=== PATIENT | female | born 1980 | race Caucasian/White ===

== ENCOUNTER 2019-08-03 20:49 | Inpatient (IN) | payer OTHER, MEDICAID ==
[~2019-08-03] VITALS: Ht 172.7 cm; Wt 71.7 kg
[2019-08-03 22:40] LABS: Basophils # (auto) 0.1 uL; Basophils % (auto) 0.6 % (0.0-2.0); Eosinophils # (auto) 0.1 uL; Lymphocytes # (auto) 2.2 uL; Mean Corpuscular Hemoglobin 24.7 pg (28.0-32.0); Monocytes # (auto) 0.5 uL
[2019-08-03 22:44] LABS: Eosinophils % (auto) 1.1 % (0.0-7.0); Hematocrit 44.6 % (36.0-46.0); Hemoglobin 13.7 g/dL (12.2-16.2); Lymphocytes % (auto) 21.2 % (10.0-50.0); Mean Corpuscular Hgb Conc. 30.8 g/dL (32.0-36.0); Mean Corpuscular Volume 80.2 fL (80.0-100.0); Monocytes % (auto) 4.8 % (0.0-12.0); Neutrophils # (auto) 7.3 uL; Neutrophils % (auto) 72.3 % (37.0-80.0); Platelet Count (auto) 470 10^3/uL (140-450); Red Blood Cells 5.56 10^6/uL (4.0-5.20); Red Cell Distribution Width 18.7 % (11.8-14.3); White Blood Cell 10.1 10^3/uL (4.4-10.8)
[2019-08-03 22:50] LABS: Albumin 2.5 g/dL (3.4-5.0); Anion Gap 11 (5-15); Aspartate Aminotransferase 9 U/L (15-37); Blood Urea Nitrogen 16 mg/dL (7-18); Calcium 8.6 mg/dL (8.5-10.1); Carbon Dioxide 19 mmol/L (21-32); Chloride 102 mmol/L (98-107); Sodium 132 mmol/L (136-145)
[2019-08-03 22:53] LABS: Alanine Aminotransferase 10 U/L (13-56); Alkaline Phosphatase 147 U/L (45-117); BUN/Creatinine Ratio 15.1; Bilirubin, Total 0.2 mg/dL (0.2-1.0); GFR African American 74 mL/min; GFR Non-African American 61 mL/min; Total Protein 7.2 g/dL (6.4-8.2)
[2019-08-03 23:08] LABS: Glucose 637 mg/dL (74-106)
[2019-08-04] MEDS ORDERED: SODIUM CHLORIDE 0.9% 1,000 ML IV ONE
[2019-08-04] MEDS ORDERED: InsuLIN REG 1unit/0.01ml Soln (100units/ml) IV ONE
[2019-08-04 02:00] LABS: Urine Pregnacy Test Negative (Negative)
[2019-08-04 02:02] LABS: Urine Bacteria FEW /hpf (None Seen); Urine Blood TRACE /uL (Negative); Urine Specific Gravity 1.034 (1.001-1.035); Urine WBC 1 /hpf (0 - 5)
[2019-08-04] MEDS ORDERED: LEVOFLOXACIN 500MG 100 ML IV ONE (02:30)
[2019-08-04 03:02] LABS: Alcohol, Urine < 3.0 mg/dL (0-5); Amphetamine Screen, Urine POSITIVE (NEGATIVE); Barbiturate Scree,Urine NEGATIVE (NEGATIVE); Benzodiazephine Screen, Urine NEGATIVE (NEGATIVE); Cannabinoid Screen, Urine NEGATIVE (NEGATIVE); Cocaine Screen, Urine NEGATIVE (NEGATIVE); Opiate Scree,Urine NEGATIVE (NEGATIVE); Phencyclidine Screen, Urine NEGATIVE (NEGATIVE)
[2019-08-04] MEDS ORDERED: ACETAMINOPHEN 325 MG TAB PO PRN (05:30)
[2019-08-04] MEDS ORDERED: HYDROcodone-ACET 5/325MG TAB PO PRN (05:30)
[2019-08-04] MEDS ORDERED: ONDANSETRON HCL 4 MG/2 ML VIAL IV PRN (05:30)
[2019-08-04] MEDS ORDERED: TEMAZEPAM 15 MG CAP PO PRN (05:30)
[2019-08-04] MEDS ORDERED: DEXTROSE (50%) 50ML SYRG IV PRN (05:30)
[2019-08-04] MEDS: SODIUM CHLORIDE 0.9% 1,000 ML IV SCH ×2 (05:49→11:25)
[2019-08-04] MEDS: CLINDAMYCIN 600MG IV 50 ML IV SCH ×2 (05:50→15:05)
[2019-08-04 08:30] VITALS: BP 126/81
--- NOTE | 2019-08-04 08:30 | NUR ---
MED/SURG admit from ER RAAD CORBIN admitted to MED/SURG unit after SBAR received. Patient oriented to GAMAL LOU RN primary RN, unit, room, bed, and unit policies regarding patient care and visiting hours. PT weighed by bedscale. No S/S of distress/SOB. Pt denies having any pain at this time. Bed in lowest and locked position with side rails up x2 and call light in reach. Instructed on POC and to call for assist PRN, will continue to monitor for changes Q1hr and PRN. All questions and concerns addressed, patient verbalized understanding.
[2019-08-04 09:35] VITALS: BP 126/81
[2019-08-04] MEDS: ACCU-CHEK COMFORT CURVE STRIP VI SCH ×3 (09:47→16:33)
[2019-08-04] MEDS: InsuLIN REG 1unit/0.01ml Soln (100units/ml) SC SCH ×3 (09:47→16:00)
[2019-08-04] MEDS ORDERED: GABAPENTIN 300 MG CAP PO SCH (10:00)
[2019-08-04] MEDS ORDERED: LISINOPRIL 20 MG TAB PO SCH (10:00)
[2019-08-04] MEDS ORDERED: FAMOTIDINE 20 MG TAB PO SCH (10:00)
[2019-08-04] MEDS ORDERED: LEVOFLOXACIN 750MG 150 ML IV SCH (10:00)
[2019-08-04] MEDS ORDERED: GABA-339 PO (10:05)
[2019-08-04] MEDS ORDERED: GLIP10TA9 PO (10:05)
[2019-08-04] MEDS ORDERED: AML5T PO (10:05)
[2019-08-04] MEDS ORDERED: HYDR-4833 PO (10:05)
[2019-08-04] MEDS ORDERED: INSLANTI SC (10:05)
[2019-08-04 10:15] LABS: Basophils # (auto) 0.1 uL; Basophils % (auto) 1.3 % (0.0-2.0); Eosinophils # (auto) 0.2 uL; Eosinophils % (auto) 2.9 % (0.0-7.0); Hematocrit 36.8 % (36.0-46.0); Hemoglobin 11.9 g/dL (12.2-16.2); Lymphocytes # (auto) 1.9 uL; Lymphocytes % (auto) 29.7 % (10.0-50.0); Mean Corpuscular Hemoglobin 24.6 pg (28.0-32.0); Mean Corpuscular Hgb Conc. 32.5 g/dL (32.0-36.0); Mean Corpuscular Volume 75.8 fL (80.0-100.0); Monocytes # (auto) 0.3 uL; Monocytes % (auto) 5.4 % (0.0-12.0); Neutrophils # (auto) 3.9 uL; Neutrophils % (auto) 60.7 % (37.0-80.0); Platelet Count (auto) 463 10^3/uL (140-450); Red Blood Cells 4.86 10^6/uL (4.0-5.20); Red Cell Distribution Width 17.8 % (11.8-14.3); White Blood Cell 6.5 10^3/uL (4.4-10.8)
--- NOTE | 2019-08-04 10:20 | NUR ---
SPOKE TO DR. FERMIN. NOTIFIED THAT THE PT STATED THAT SHE HAD A PREVIOUS BLOOD CLOT IN THE LEFT LEG AND THAT SHE HAD PREVIOUSLY TAKEN ZARELTO, BUT HAS NOT TAKEN IT SINCE 2018. MD AWARE AND NEW ORDERS RECEIVED READ BACK AND VERIFIED.
[2019-08-04] MEDS ORDERED: ENOXAPARIN SOD 40 MG/0.4 ML SYRINGE SC SCH (10:30)
--- NOTE | 2019-08-04 10:30 | NUR ---
PAGED DR. FERMIN REGARDING PODIATRY DRAIN LAYER.
--- NOTE | 2019-08-04 11:00 | NUR ---
WOUND CARE NOTE: IN TO SEE PATIENT AT THIS TIME PER WOUND CARE CONSULT REQUEST. PATIENT WAS NOTED UPON PRESENTATION TO THE ER TO HAVE DRAINING WOUND TO RIGHT PLANTAR FOOT. WOUND PHOTO TAKEN UPON ADMIT BY BEDSIDE NURSE, WOUND CONSULT ORDERED. PATIENT ADMITTED TO [facility] WITH DIAGNOSIS OF RIGHT OSTEOMYELITIS. 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 PATIENT STATES THAT SHE HAD HER AMPUTATION IN [place], NOT SURE OF WHEN OR AT WHAT HOSPITAL. SHE IS NOT AWARE OF SURGEON'S NAME. PATIENT IS CURRENTLY NOT FOLLOWING UP WITH ANY STRATEGIC PROCUREMENT MANAGER. SHE IS A LONGSTANDING DIABETIC. PATIENT FURTHER STATES THAT SHE HAS NO SENSATION IN EITHER OF HER FEET. PATIENT NOTED TO HAVE A 3 X 3 X O.5 CM OPEN DRAINING DFU. PERIWOUND IS MACERATED, EDGES ARE ROLLED. WOUND APPEARS CHRONIC. WOUND BED IS PALE PINK, WITH LIGHT AMOUNTS OF SEROUS DRAINAGE NOTED. THERE IS 1 CM UNDERMINE AT 0900 NOTED. WOUND CULTURE WAS OBTAINED EARLIER, AND IS CURRENTLY IN PROCESS. PODIATRY CONSULT IS PENDING. CLEANSED WOUND WITH WOUND CLEANSER, PATTED DRY WITH STERILE GAUZE. APPLIED THERAHONEY TO OPEN WOUND BED. COVERED WITH TELFA, WRAPPED FOOT WITH KERLIX, SECURED WITH TAPE. ELEVATED FOOT UP ONTO PILLOW TO CONTROL EDEMA. RECOMMEND: DIETARY CONSULT (PENDING), DAILY/PRN DRESSING CHANGE, DIETARY CONSULT, SKIN/WOUND CARE PLAN, ELEVATION OF RIGHT FOOT UP ONTO PILLOW, CONTINUED MONITORING BY WOUND CARE TEAM. Addendum: 08/04/19 at 1501 by Dee Daniel RN Amended: Links added.
[2019-08-04 11:11] LABS: Albumin 2.4 g/dL (3.4-5.0); BUN/Creatinine Ratio 16.7; Calcium 7.9 mg/dL (8.5-10.1); Potassium 4.5 mmol/L (3.5-5.1)
[2019-08-04 11:14] LABS: Bilirubin, Total 0.3 mg/dL (0.2-1.0); Total Protein 6.6 g/dL (6.4-8.2)
[2019-08-04 11:17] LABS: CRP High Sensitivity 1.82 mg/dL (< 0.3)
--- NOTE | 2019-08-04 12:00 | NUR ---
[facility] SENT TO LAB.
[2019-08-04 12:08] VITALS: BP 135/76
[2019-08-04 12:46] LABS: BUN/Creatinine Ratio 18.9; Potassium 4.2 mmol/L (3.5-5.1)
--- NOTE | 2019-08-04 13:00 | NUR ---
IV removal RIGHT FA IV DC'd with clean sterile technique, catheter fully intact. Pressure dressing applied to site. Patient tolerated well.
--- NOTE | 2019-08-04 13:12 | NUR ---
IV insertion IV access obtained, via clean sterile technique by inserting 20 gauge catheter at LEFT WRIST after 1 attempt(s). IV secured properly. No trauma to site. Patient tolerated well.
--- NOTE | 2019-08-04 13:55 | NUR ---
IV removal LEFT WRIST IV DC'd with clean sterile technique, catheter fully intact. Pressure dressing applied to site. Patient tolerated well.
--- NOTE | 2019-08-04 14:00 | NUR ---
IV insertion IV access obtained, via clean sterile technique by inserting 22 gauge catheter at RIGHT WRIST after 1 attempt(s). IV secured properly. No trauma to site. Patient tolerated well.
--- NOTE | 2019-08-04 15:35 | NUR ---
Midline Placement: Patient educated on need for midline placement. All risks and benefits explained and all questions and concerns addresses prior to procedure. 18g/10cm midline inserted via L BASILIC vein using Ultrasound. Sterile technique utilized. Blood return obtained from SINGLE lumen and flushed easily with NS using proper technique. Midline secured with saline lock; biodisc and occlusive dressing applied. Primary RN notified. Midline lot # [id number].
[2019-08-04 16:58] VITALS: BP 110/58
--- NOTE | 2019-08-04 19:30 | NUR ---
ENDORSED CARE TO NIGHT, RNCORINNE.
--- NOTE | 2019-08-04 19:30 | NUR ---
Opening Shift Note Assumed care of patient. Patient is ambulatory, awake, alert and oriented. No S/S of distress/SOB or pain. Will continue to monitor for changes. Bed locked in lowest position and bed rails up x2. Call light within reach.
--- NOTE | 2019-08-04 20:30 | NUR ---
Made patient aware of visiting hours as her visitor sat at bedside. Patient stated that she has never heard of that policy before and refuses to let her visitor leave without her. I explained all of the benefits of her staying and receiving the proper care and that visiting hours had to be enforced. She verbalized understanding and decided that she still wanted to leave. Charge nurse, Luisa, house cleaner and hospitalist, Horacio made aware.
--- NOTE | 2019-08-04 20:58 | NUR ---
AMA Note RAAD CORBIN states they want to leave the hospital Against Medical Advice (AMA). Patient encouraged to stay for further treatment/stabilization. Patient verbally upset using profanity towards Primary RN. Security at bedside. GENNY Leonard notified of patient's wishes. Patient advised of the risks and benefits of leaving AMA. Patient verbalized understanding. Patient encouraged to return to the ER if symptoms do not improve or worsen. IV and Midline discontinued. Patient refused to sign AMA form. Instructed patient on A hospital policy for forms and continued to refuse to sign paperwork.
== END 2019-08-04 21:25 | disposition left against medical advice (07) | DRG 344 ==
LOC: ER 20:49 → OVERFLOW 20:50 → EAST 08-04 08:30
PROVIDERS: ADMIT Nurse Practitioner; ATTEND Internal Medicine
DX: E11.69 Type 2 diabetes mellitus with other specified complication (principal); M86.8X7 Other osteomyelitis, ankle and foot; E11.10 Type 2 diabetes mellitus with ketoacidosis without coma; E86.0 Dehydration; E11.65 Type 2 diabetes mellitus with hyperglycemia; Z53.29 Procedure and treatment not carried out because of patient's decision for other reasons; F15.10 Other stimulant abuse, uncomplicated; L03.031 Cellulitis of right toe; Z91.19 Patient's noncompliance with other medical treatment and regimen; Z86.718 Personal history of other venous thrombosis and embolism; Z88.0 Allergy status to penicillin; Z88.1 Allergy status to other antibiotic agents; Z79.4 Long term (current) use of insulin
CPT/HCPCS: 36415; 73700; 80048; 80053; 80061; 80307; 81001; 81025; 82010; 82043; 82962; 83036; 83605; 84443; 84484; 85025; 85652; 86141; 87040; 87081; 87205; 96365; 96375; G0378; J1815; J1956; J3490

== ENCOUNTER 2024-02-19 12:31 | Inpatient (IN) | payer OTHER, MEDICAID ==
[~2024-02-19] VITALS: Ht 172.7 cm; Wt 109.4 kg
[~2024-02-19 12:31] MED LIST: AML5T PO; GABA-339 PO; GLIP10TA9 PO; HYDR-4833 PO; INSLANTI SC
[2024-02-19] MEDS: CLINDAMYCIN 600MG IV 50 ML IV ONE (13:30)
[2024-02-19] MEDS: SODIUM CHLORIDE 0.9% 1,000 ML IV ONE ×2 (13:30)
[2024-02-19] MEDS: PIPERACILLIN-TAZOB 3.375GM 100 ML IV ONE (13:30)
[2024-02-19 14:02] VITALS: PULSE 84; RESP 20; O2SAT 97
[2024-02-19 14:14] LABS: Eosinophils # (auto) 0.1 10 ^3/uL (0-0.8); Monocytes # (auto) 1.3 10 ^3/uL (0-1.3)
[2024-02-19 14:16] LABS: Basophils # (auto) 0.1 10 ^3/uL (0-0.2); Basophils % (auto) 0.5 % (0.0-2.0); Eosinophils % (auto) 0.5 % (0.0-7.0); Hematocrit 31.7 % (36.0-46.0); Lymphocytes # (auto) 1.5 10 ^3/uL (0.4-5.4); Mean Corpuscular Hemoglobin 26.2 pg (28.0-32.0); Mean Corpuscular Hgb Conc. 31.4 g/dL (32.0-36.0); Mean Corpuscular Volume 83.4 fL (80.0-100.0); Monocytes % (auto) 8.4 % (0.0-12.0); Neutrophils # (auto) 12.4 10 ^3/uL (1.6-8.6); Neutrophils % (auto) 80.6 % (37.0-80.0); Red Blood Cells 3.81 10^6/uL (4.0-5.20); Red Cell Distribution Width 14.5 % (11.8-14.3); White Blood Cell 15.3 10^3/uL (4.4-10.8)
[2024-02-19 14:32] LABS: Alanine Aminotransferase 12 U/L (7-40); Alkaline Phosphatase 75 U/L (46-116); Anion Gap 9 (5-15); Aspartate Aminotransferase 14 U/L (13-40); Bilirubin, Total 0.3 mg/dL (0.2-1.0); Blood Urea Nitrogen 43 mg/dL (9-23); Calcium 8.3 mg/dL (8.5-10.1); Carbon Dioxide 21 mmol/L (20-30); Chloride 109 mmol/L (98-107); Glucose 324 mg/dL (74-106); Potassium 3.7 mmol/L (3.5-5.1); Sodium 139 mmol/L (136-145)
[2024-02-19] MEDS: ENOXAPARIN SOD 120 MG/0.8 ML SYRINGE SC ONE (16:00)
[2024-02-19] MEDS: MORPHINE SULFATE 4 MG/ML SYR/VIAL IV ONE (17:18)
[2024-02-19] MEDS: ONDANSETRON HCL 4 MG/2 ML VIAL IV ONE (17:19)
[2024-02-19 18:29] LABS: Urine Bacteria FEW /hpf (None Seen); Urine Blood 2+ /uL (Negative); Urine Clarity Turbid (Clear); Urine Color Light-Yellow (Yellow); Urine Protein, UAD 3+ (Negative); Urine Specific Gravity 1.016 (1.001-1.035); Urine Urobilinogen Normal (Negative); Urine WBC 36 /hpf (0 - 5)
[2024-02-19 19:43] VITALS: PULSE 84; RESP 13; O2SAT 96
[2024-02-19] MEDS: HYDROmorphone HCL 2 MG/ML VL/or syr IV ONE (21:21)
[2024-02-19] MEDS ORDERED: DOCUSATE SOD 100 MG CAP PO PRN (23:15)
[2024-02-19] MEDS ORDERED: ACETAMINOPHEN 325 MG TAB PO PRN (23:15)
[2024-02-19] MEDS ORDERED: DEXTROSE (50%) 50ML SYRG IV PRN (23:15)
[2024-02-19] MEDS: InsuLIN REG 1unit/0.01ml Soln (100units/ml) SC SCH (23:55)
[2024-02-20] MEDS: ACCU-CHEK COMFORT CURVE STRIP VI SCH (00:01)
[2024-02-20 00:03] LABS: INR 0.99 (0.9-1.15); Partial Thromboplastin Time 26.1 SEC (24.5-34.5); Prothrombin Time 10.5 sec (9.3-11.8)
[2024-02-20] MEDS ORDERED: NITROGLYCERIN 0.4 MG SL TAB SL PRN (00:15)
[2024-02-20] MEDS ORDERED: MORPHINE SULFATE INJ 2 MG/ml SYRG IV PRN (00:15)
[2024-02-20] MEDS: CLINDAMYCIN 600MG IV 50 ML IV SCH (00:41)
[2024-02-20] MEDS: HEPARIN DRIP/D5W 100UNITS/ML 250 ML IV SCH ×3 (01:32→23:06)
[2024-02-20] MEDS: diphenhdrAMINE HCL 50 MG/1 ML VL IV ONE (03:59)
[2024-02-20] MEDS: HYDROmorphone HCL 2 MG/ML VL/or syr IV PRN (05:59)
[2024-02-20] MEDS: SODIUM CHLOR 0.9% PF (SALINE LOCK) 10ML VIAL/SYR IV SCH (06:13)
[2024-02-20 06:18] LABS: Basophils # (auto) 0.1 10 ^3/uL (0-0.2); Basophils % (auto) 0.4 % (0.0-2.0); Eosinophils # (auto) 0.2 10 ^3/uL (0-0.8); Eosinophils % (auto) 1.2 % (0.0-7.0); Hematocrit 30.2 % (36.0-46.0); Hemoglobin 9.4 g/dL (12.2-16.2); Lymphocytes # (auto) 2.4 10 ^3/uL (0.4-5.4); Lymphocytes % (auto) 17.1 % (10.0-50.0); Mean Corpuscular Hgb Conc. 31.2 g/dL (32.0-36.0); Mean Corpuscular Volume 83.2 fL (80.0-100.0); Monocytes # (auto) 1.3 10 ^3/uL (0-1.3); Monocytes % (auto) 9.1 % (0.0-12.0); Neutrophils # (auto) 10.1 10 ^3/uL (1.6-8.6); Neutrophils % (auto) 72.2 % (37.0-80.0); Nucleated Red Blood Cells % 0.1 %; Red Blood Cells 3.62 10^6/uL (4.0-5.20); Red Cell Distribution Width 14.9 % (11.8-14.3); White Blood Cell 14.1 10^3/uL (4.4-10.8)
[2024-02-20 06:32] LABS: Alanine Aminotransferase 15 U/L (7-40); Alkaline Phosphatase 83 U/L (46-116); Anion Gap 8 (5-15); Aspartate Aminotransferase 15 U/L (13-40); Blood Urea Nitrogen 37 mg/dL (9-23); Carbon Dioxide 22 mmol/L (20-30); Chloride 112 mmol/L (98-107); Glucose 162 mg/dL (74-106); Potassium 3.6 mmol/L (3.5-5.1); Sodium 142 mmol/L (136-145)
[2024-02-20 06:33] LABS: Bilirubin, Total 0.2 mg/dL (0.2-1.0); Total Protein 5.4 g/dL (5.7-8.2)
[2024-02-20 07:30] VITALS: PULSE 72; RESP 13; O2SAT 95
[2024-02-20 08:16] LABS: INR 0.98 (0.9-1.15); Partial Thromboplastin Time 36.1 SEC (24.5-34.5); Prothrombin Time 10.4 sec (9.3-11.8)
[2024-02-20] MEDS: hydrALAZINE HCL 20 MG/ML VL IV PRN (10:24)
[2024-02-20] MEDS: ONDANSETRON HCL 4 MG/2 ML VIAL IV PRN (11:48)
[2024-02-20] MEDS: HYDROcodone-ACET 5/325MG TAB PO PRN (14:54)
[2024-02-20] MEDS: hydrALAZINE HCL 20 MG/ML VL IV ONE (15:21)
[2024-02-20] MEDS ORDERED: levoFLOXacin 500MG 100 ML IV ONE (16:00)
[2024-02-20 17:55] VITALS: BP 108/81; PULSE 76; RESP 18; O2SAT 76
[2024-02-20] MEDS: amLODIPine BESYLATE 5 MG TAB PO ONE (18:10)
[2024-02-20 18:11] VITALS: BP 108/81; PULSE 76; RESP 20; TEMP 97.9; O2SAT 98
[2024-02-20 20:00] VITALS: BP 155/75; PULSE 85; PULSE 92; RESP 18; RESP 19; TEMP 98.2; O2SAT 95
[2024-02-20 21:00] VITALS: BP 165/75; PULSE 80; RESP 18; TEMP 97.8; O2SAT 96
[2024-02-21] VITALS (8 sets, daily range): BP systolic 136–181; BP diastolic 55–81; PULSE 72–93; RESP 16–20; TEMP 98–98.4; O2SAT 93–97
[2024-02-21 07:04] LABS: INR 0.97 (0.9-1.15); Partial Thromboplastin Time 46.9 SEC (24.5-34.5); Prothrombin Time 10.3 sec (9.3-11.8)
[2024-02-21] MEDS: HEPARIN DRIP/D5W 100UNITS/ML 250 ML IV SCH (08:51)
[2024-02-21] MEDS: amLODIPine BESYLATE 5 MG TAB PO SCH (09:52)
[2024-02-21 14:03] LABS: INR 0.96 (0.9-1.15); Prothrombin Time 10.2 sec (9.3-11.8)
[2024-02-21 19:51] LABS: INR 0.95 (0.9-1.15); Partial Thromboplastin Time 67.1 SEC (24.5-34.5); Prothrombin Time 10.1 sec (9.3-11.8)
[2024-02-21] MEDS: CLINDAMYCIN HCL 150 MG CAP PO SCH (21:32)
[2024-02-21] MEDS: levoFLOXacin 250MG 50 ML IV SCH (23:32)
[2024-02-22] VITALS (8 sets, daily range): BP systolic 146–174; BP diastolic 71–83; PULSE 66–87; RESP 17–20; TEMP 97.3–98.8; O2SAT 95–99
[2024-02-22 01:58] LABS: INR 0.96 (0.9-1.15); Prothrombin Time 10.2 sec (9.3-11.8)
[2024-02-22 06:13] LABS: Hemoglobin 9.4 g/dL (12.2-16.2)
[2024-02-22 06:15] LABS: Hematocrit 29.6 % (36.0-46.0); Mean Corpuscular Hemoglobin 26.2 pg (28.0-32.0); Mean Corpuscular Hgb Conc. 31.6 g/dL (32.0-36.0); Mean Corpuscular Volume 82.9 fL (80.0-100.0); Red Blood Cells 3.57 10^6/uL (4.0-5.20); Red Cell Distribution Width 14.4 % (11.8-14.3); White Blood Cell 13.6 10^3/uL (4.4-10.8)
[2024-02-22 06:17] LABS: Basophils % (manual) 0 (0.0-2.0); Blast Cells 0; Metamyelocytes % 0; Myelocytes % 0; Promyelocytes % 0; Reactive Lymphocytes 0
[2024-02-22 07:27] LABS: Band Neutrophils % (manual) 2; Eosinophils % (manual) 2 (0-7); Lymphocytes % (manual) 22 (10.0-50.0); Monocytes % (manual) 9 (0-12); Platelet Estimate Adequate
[2024-02-22 09:12] LABS: INR 0.94 (0.9-1.15); Partial Thromboplastin Time 26.9 SEC (24.5-34.5)
[2024-02-22 16:46] LABS: INR 0.98 (0.9-1.15); Partial Thromboplastin Time 64.6 SEC (24.5-34.5); Prothrombin Time 10.4 sec (9.3-11.8)
[2024-02-22 22:46] LABS: INR 0.97 (0.9-1.15); Prothrombin Time 10.3 sec (9.3-11.8)
[2024-02-22 22:52] LABS: Partial Thromboplastin Time 73.6 SEC (24.5-34.5)
[2024-02-23 01:00] VITALS: BP 172/75; PULSE 83; RESP 18; TEMP 98.5; O2SAT 98
[2024-02-23 04:51] VITALS: BP 147/87; PULSE 84; RESP 14; TEMP 98.1; O2SAT 97
[2024-02-23 06:37] LABS: INR 0.95 (0.9-1.15); Partial Thromboplastin Time 27.1 SEC (24.5-34.5); Prothrombin Time 10.1 sec (9.3-11.8)
[2024-02-23] MEDS: HEPARIN SODIUM (PORCINE) 5000 UNITS/ML 1ML VIAL IV ONE (07:07)
[2024-02-23 08:30] VITALS: RESP 16
[2024-02-23 09:15] VITALS: BP 134/66; PULSE 80; RESP 20; TEMP 98; O2SAT 92
[2024-02-23] MEDS ORDERED: CLIN150C18 PO (10:23)
[2024-02-23] MEDS ORDERED: APIX2.5T PO (10:23)
[2024-02-23] MEDS ORDERED: ACET-1882 PO (10:23)
[2024-02-23] MEDS: APIXABAN 5 MG TAB PO ONE (11:32)
[2024-02-23] MEDS ORDERED: APIXABAN 5 MG TAB PO SCH (22:00)
== END 2024-02-23 12:00 | disposition left against medical advice (07) | DRG 299 ==
LOC: ER 12:31 → TELE-WESTW 02-20 00:03 → TELE 02-20 00:03 → TELE-WESTW 02-20 17:08
PROVIDERS: ADMIT Internal Medicine; ATTEND Internal Medicine
DX: I82.411 Acute embolism and thrombosis of right femoral vein (principal); N17.0 Acute kidney failure with tubular necrosis; I12.0 Hypertensive chronic kidney disease with stage 5 chronic kidney disease or end stage renal disease; L03.115 Cellulitis of right lower limb; N18.5 Chronic kidney disease, stage 5; E11.65 Type 2 diabetes mellitus with hyperglycemia; F17.210 Nicotine dependence, cigarettes, uncomplicated; E11.22 Type 2 diabetes mellitus with diabetic chronic kidney disease; Z53.29 Procedure and treatment not carried out because of patient's decision for other reasons; Z89.512 Acquired absence of left leg below knee; Z88.0 Allergy status to penicillin; Z88.1 Allergy status to other antibiotic agents; Z89.431 Acquired absence of right foot; Z83.3 Family history of diabetes mellitus
CPT/HCPCS: 36415; 80053; 81001; 82962; 83605; 84484; 85007; 85025; 85027; 85610; 85730; 87040; 87077; 87186; 87205; 93970; 96365; 96368; 96372; 96375; G0378; J1815; J2405; J2543; J3490

== ENCOUNTER 2025-04-02 21:28 | Inpatient (IN) | payer OTHER, MEDICAID ==
[~2025-04-02] VITALS: Ht 172.7 cm; Wt 90.7 kg
[~2025-04-02 21:28] MED LIST changes: +ACET-1882 PO; +APIX2.5T PO; +CLIN150C18 PO
[2025-04-02 22:53] LABS: Basophils # (auto) 0.1 10 ^3/uL (0-0.2); Basophils % (auto) 0.9 % (0.0-2.0); Eosinophils # (auto) 0.1 10 ^3/uL (0-0.8); Hematocrit 35.4 % (36.0-46.0); Hemoglobin 11.7 g/dL (12.2-16.2); Lymphocytes # (auto) 1.6 10 ^3/uL (0.4-5.4); Lymphocytes % (auto) 16.5 % (10.0-50.0); Mean Corpuscular Hemoglobin 28.4 pg (28.0-32.0); Mean Corpuscular Hgb Conc. 33.2 g/dL (32.0-36.0); Mean Corpuscular Volume 85.7 fL (80.0-100.0); Monocytes # (auto) 0.4 10 ^3/uL (0-1.3); Monocytes % (auto) 4.1 % (0.0-12.0); Neutrophils # (auto) 7.6 10 ^3/uL (1.6-8.6); Neutrophils % (auto) 77.5 % (37.0-80.0); Nucleated Red Blood Cells % 0.1 %; Platelet Count (auto) 228 10^3/uL (140-450); Red Blood Cells 4.13 10^6/uL (4.0-5.20); Red Cell Distribution Width 14.4 % (11.8-14.3); White Blood Cell 9.8 10^3/uL (4.4-10.8)
--- NOTE | 2025-04-02 22:56 | DVH ---
CHEST RADIOGRAPH Indication: Shortness of breath Technique: Single frontal view of the chest was obtained Comparison: None FINDINGS/IMPRESSION: Probable lcgp-[id number]-[id number]-right pleural effusion with associated opacity. There are diffuse hazy opa cities throughout the lungs with prominence of the interstitial markings. There is enlargement of the cardiomediastinal silhouette. There is no pneumothorax. There is no acute osseous abnormality.
[2025-04-02] MEDS: NITROGLYCERIN 0.4 MG SL TAB SL ONE (23:00)
[2025-04-02] MEDS: FUROSEMIDE 40 MG/4 ML VIAL IV ONE (23:00)
[2025-04-02 23:06] LABS: Urine Bacteria FEW /hpf (None Seen); Urine Blood 1+ /uL (Negative); Urine Clarity Clear (Clear); Urine Color Light-Yellow (Yellow); Urine Protein, UAD 3+ (Negative); Urine Specific Gravity 1.014 (1.001-1.035); Urine Squamous Epithelial Cell FEW /hpf (<5); Urine Urobilinogen Normal (Negative); Urine WBC 1 /HPF (0-5); Urine pH 6.5 (5.0-9.0)
[2025-04-02 23:12] LABS: Alanine Aminotransferase 15 U/L (7-40); Albumin 3.9 g/dL (3.2-4.8); Alkaline Phosphatase 71 U/L (46-116); Anion Gap 17 (5-15); Aspartate Aminotransferase 22 U/L (<34); BUN/Creatinine Ratio 7.6 (10.0-20.0); Potassium 4.7 mmol/L (3.5-5.1); Sodium 140 mmol/L (136-145); Total Protein 6.4 g/dL (5.7-8.2)
[2025-04-02 23:13] LABS: Bilirubin, Total 0.6 mg/dL (0.2-1.0)
[2025-04-02 23:15] LABS: Blood Urea Nitrogen 59 mg/dL (9-23); Carbon Dioxide 16 mmol/L (20-31); Chloride 107 mmol/L (98-107); Glucose 194 mg/dL (74-106)
[2025-04-02 23:16] LABS: Calcium 8.6 mg/dL (8.7-10.4)
--- NOTE | 2025-04-03 00:23 | ED.PDOC ---
History of Present Illness HPI Comments 45 y/o F is BIBA for 3x day history of shortness of breath. Per EMS report, patient endorses on progressively worsening symptoms following initial onset after dealing with a nonproductive cough and chills for the past 2x weeks. Patient has a history of DM, ESRD w/HD M/W/F, HTN, DVT, PE, PTCA, left BKA, and right foot digits amputation. Patient missed her dialysis appointment on 03/31/25 and has not taken her blood pressure medications, today. She was noted to have a SpO2 of 88%RA in addition to being tachycardic and hypertensive. All other vitals were stable and within normal limits. En route, patient was placed on 2LPM oxygen via NC, with SpO2 improving to 95%. She denies having any chest pain, palpitations, phlegm production, congestion, fever, urinary symptoms, or further associated symptoms. Chief Complaint: Shortness of Breath Time Seen by MD: 21:42 Reviewed Notes: Nurses Notes, Morning Babysitter Notes, Medications, Allergies Allergies: Coded Allergies: Penicillins (Verified Allergy, Unknown, 04/02/25) Information Source: Patient, Emergency Med Personnel Mode of Arrival: EMS Severity: Moderate Timing: Days Duration: Since onset Prehospital treatment: 12 Lead EKG, Media Analyst, Oxygen Review of Systems: REVIEW OF SYSTEMS: Chills, no fever, or fatigue HEENT: No sore throat, no earache, no congestion, no neck pain. Cardiac: No chest pain. No palpitations. Lungs: Shortness of breath, cough. GI: No nausea, no vomiting, no diarrhea, no constipation, no abdominal pain : No dysuria, frequency, or urgency. No hematuria. Musculoskeletal: No joint pain , no joint swelling, no extremity edema. Skin: No rash, no itching. Neuro: No headache, no dizziness, no weakness Vital Signs Vital Signs Date Time Temp Pulse Resp B/P (MAP) Pulse Ox O2 Delivery O2 Flow Rate FiO2 04/03/25 00:30 82 196/86 04/02/25 21:34 98.2 20 94 98.2 Physical Exam General: Awake, alert and oriented. No acute distress. Skin: Skin in warm, dry and intact. Appropriate color for ethnicity. HEENT: The head is normocephalic and atraumatic. Conjunctivae are clear without exudates or hemorrhage. Sclera is non-icteric. EOM are intact. No signs of nystagmus. Eyelids are normal in appearance without swelling or lesions. Oral mucosa is pink and moist Neck: The neck is supple with normal range of motion. No JVD. Cardiac: Heart rate and rhythm are normal. No murmurs, gallops, or rubs are auscultated. Respiratory: Rales in bilateral lung sylvester. No signs of respiratory distress. Lung sounds are clear rhonchi or wheezes. Abdominal: Abdomen is soft, non-tender without distention, guarding or rigidity. Bowel sounds are present and normoactive in all four quadrants. Extremities: BKA and right toe amputation. Otherwise, remaining upper and lower extremities are atraumatic in appearance without deformity or edema. Neurological: The patient is awake, alert and oriented to person, place, and time with normal speech. Speech is clear. There is no facial asymmetry. Psychiatric: Appropriate mood and affect. Good judgement and insight. Past Medical History PAST MEDICAL HISTORY: DM, ESRD (w/HD M/W/F), HTN, PE Past Medical History (Other): DVT's Surgical History: BKA (left ), PTCA Surgical History (Other): right toe amputation left upper extremity fistula RESIDENT CARE ASSISTANT History: Denies all RESIDENT CARE ASSISTANT Hx Family History Family History: Unknown Social History Smoker: Non-Smoker Alcohol: Denies ETOH Use Drugs: Denies Drug Use Lives In: Home Was a procedure done? Was a procedure done?: No EKG EKG : Pulse Rate (adult): 105 [place]: Normal Cardiac Rhythm: ST, PAC's Block: None Hypertrophy: None ST: Normal Comments No STEMI Differential Dx Considerations may include: Differential diagnoses considered includebut arenot limited to acute Bronchitis, Asthma, COPD, Pneumothorax, PE, CHF, Pulmonary HTN, Anemia, CO Poisoning, Methemoglobinemia, Hyperventilation, Metabolic Acidosis, Pulmonary Edema, Pneumonia, ACS, Pericardial Tamponade, Anxiety, other X-Ray, Labs, Meds, VS Vital Signs Date Time Temp Pulse Resp B/P (MAP) Pulse Ox O2 Delivery O2 Flow Rate FiO2 04/03/25 00:30 82 196/86 04/03/25 00:00 100 04/02/25 23:00 194/80 04/02/25 23:00 196/92 04/02/25 22:47 107 04/02/25 21:40 105 04/02/25 21:34 98.2 106 20 191/130 (150) 94 98.2 Lab Test 04/02/25 22:47 04/02/25 22:37 Range/Units Urine Color Light-yellow Yellow Urine Clarity Clear Clear Urine pH 6.5 5.0-9.0 Urine Specific [place] 1.014 1.001-1.035 Urine Protein 3+ H Negative Urine Ketones Trace Negative Urine Blood 1+ H Negative /uL Urine Nitrite Negative Negative Urine Bilirubin Negative Negative Urine Urobilinogen Normal Negative mg/dL Urine Leukocyte Esterase Negative Negative /uL Urine RBC 1 0 - 4 /hpf Urine Microscopic WBC 1 0-5 /HPF Urine Squamous Epithelial Cells Few <5 /hpf Urine Bacteria Few H None Seen /hpf Urine Glucose 4+ H Normal mg/dL White Blood Count 9.8 4.4-10.8 10^3/uL Red Blood Count 4.13 4.0-5.20 10^6/uL Hemoglobin 11.7 L 12.2-16.2 g/dL Hematocrit 35.4 L 36.0-46.0 % Mean Corpuscular Volume 85.7 80.0-100.0 fL Mean Corpuscular Hemoglobin 28.4 28.0-32.0 pg Mean Corpuscular Hemoglobin Concent 33.2 32.0-36.0 g/dL Red Cell Distribution Width 14.4 H 11.8-14.3 % Platelet Count 228 140-450 10^3/uL Mean Platelet Volume 10.4 6.9-10.8 fL Neutrophils (%) (Auto) 77.5 37.0-80.0 % Lymphocytes (%) (Auto) 16.5 10.0-50.0 % Monocytes (%) (Auto) 4.1 0.0-12.0 % Eosinophils (%) (Auto) 1.0 0.0-7.0 % Basophils (%) (Auto) 0.9 0.0-2.0 % Neutrophils # (Auto) 7.6 1.6-8.6 10 ^3/uL Lymphocytes # (Auto) 1.6 0.4-5.4 10 ^3/uL Monocytes # (Auto) 0.4 0-1.3 10 ^3/uL Eosinophils # (Auto) 0.1 0-0.8 10 ^3/uL Basophils # (Auto) 0.1 0-0.2 10 ^3/uL Nucleated Red Blood Cells 0.1 % Sodium Level 140 136-145 mmol/L Potassium Level 4.7 3.5-5.1 mmol/L Chloride Level 107 98-107 mmol/L Carbon Dioxide Level 16 L 20-31 mmol/L Anion Gap 17 H 5-15 Blood Urea Nitrogen 59 H 9-23 mg/dL Creatinine 7.75 H 0.550-1.02 mg/dL Glomerular Filtration Rate Calc 6 >90 mL/min BUN/Creatinine Ratio 7.6 L 10.0-20.0 Serum Glucose 194 H 74-106 mg/dL Calcium Level 8.6 L 8.7-10.4 mg/dL Total Bilirubin 0.6 0.2-1.0 mg/dL Aspartate Amino Transferase (AST) 22 <34 U/L Alanine Aminotransferase (ALT) 15 7-40 U/L Alkaline Phosphatase 71 46-116 U/L Troponin I High Sensitivity 65 *H </=34 ng/L B-Type Natriuretic Peptide 3362.18 0-100 pg/mL Total Protein 6.4 5.7-8.2 g/dL Albumin 3.9 3.2-4.8 g/dL Current Medications Medications (Trade) Dose Ordered Sig/Luma Route Start Time Stop Time Status Last Admin Furosemide (Lasix Injection) 40 mg ONCE ONCE IV 04/02/25 23:00 04/02/25 23:08 DC 04/02/25 23:00 Nitroglycerin (Ntrostat Sublingual) 0.4 mg ONCE ONCE SL 04/02/25 23:00 04/02/25 23:01 DC 04/02/25 23:00 Labetalol HCl (Labetalol HCl) 20 mg ONCE ONCE IV 04/03/25 00:30 04/03/25 00:31 DC 04/03/25 00:[address] [address] Ph: [phone] DIAGNOSTIC IMAGING Diagnostic Imaging Report : [id number] Signed PATIENT: RAAD CORBIN ACCT: [id number] UNIT: [id number] : 1980 LOC: ER ROOM / BED: / AGE / SEX: 45 / F ADM STATUS: REG ER SERVICE 23 ORDERING PHYSICIAN: CHAR ALEJANDRA MD PROCEDURE(s): CXR1 - CHEST XRAY 1 VIEW REASON: Shortness of breath ORDER NUMBER(s): [id number], ACCESSION NUMBER(s): [id number] CHEST RADIOGRAPH Indication: Shortness of breath Technique: Single frontal view of the chest was obtained Comparison: None FINDINGS/IMPRESSION: Probable uoha-ddmmjpx-tfac-right pleural effusion with associated opacity. There are diffuse hazy opacities throughout the lungs with prominence of the interstitial markings. There is enlargement of the cardiomediastinal silhouette. There is no pneumothorax. There is no acute osseous abnormality. ATED BY: MAYI WASHINGTON MD DICTATED DATE/TIME: 04/02/252253 SIGNED BY: MAYI WASHINGTON MD SIGNED DATE/TIME: 04/02/252253 CC: Time of 1ST Reevaluation: 22:12 Reevaluation 1ST: Unchanged Patient Education/Counseling: Treatment, Other (need for admission ) Family Education/Counseling: No Family Present SEPSIS Sepsis Screen Date sepsis recognized/suspect: Apr 02, 2025 Time Sepsis recognized/suspect: 2136 Recent Procedure: No On Antibiotic Therapy: No Respiratory Rate >20: No Heart Rate >90: Yes Temp<36 C (96.8 F) or >38.3 C: No SBP <90 or MAP <65 mmHG: No New Acute Mental Status Change: No Is the patient on CPAP, BIPAP,: No Physician Orders Electrocardigram (04/02/25 21:45) Vital Signs Q1HR (04/02/25 22:24) Chest Xray 1 View (04/02/25 22:24) Vital Signs Date Time Temp Pulse Resp B/P (MAP) Pulse Ox O2 Delivery O2 Flow Rate FiO2 04/03/25 00:30 82 196/86 04/03/25 00:00 100 04/02/25 23:00 194/80 04/02/25 23:00 196/92 04/02/25 22:47 107 04/02/25 21:40 105 04/02/25 21:34 98.2 106 20 191/130 (150) 94 98.2 Laboratory Tests Test 04/02/25 22:37 White Blood Count 9.8 10^3/uL (4.4-10.8) Medications Medications Dose Ordered Sig/Luma Route Start Time Stop Time Status Last Admin Dose Admin Furosemide 40 mg ONCE ONCE IV 04/02/25 23:00 04/02/25 23:08 DC 04/02/25 23:00 Labetalol HCl 20 mg ONCE ONCE IV 04/03/25 00:30 04/03/25 00:31 DC 04/03/25 00:30 Nitroglycerin 0.4 mg ONCE ONCE SL 04/02/25 23:00 04/02/25 23:01 DC 04/02/25 23:00 Departure 1 Departure Time of Disposition: 00:22 Impression: Primary Impression: Dyspnea Additional Impressions: Missed dialysis Pleural effusion Uncontrolled hypertension Disposition: ADMITTED INPATIENT Condition: Stable Comments Patient admitted to hospitalist service for further treatment, evaluation and monitoring. Extensive evaluation was performed in attempt to identify or rule out: (See differential diagnosis section) The following tests were ordered, and results were reviewed by me and discussed with patient: (See diagnostic results section) The following test were independently interpreted by me: EKG I reviewed and agreed with the following test results read by other providers: Chest x-ray I reviewed the following notes from the pt's past medical encounters: N/A Additional information was gathered from interviewing the following independent historians: EMS Discussion of management or test interpretation with external physician/other qualified health manager critical care unit: N/A Addressed an acute or chronic illness that poses a threat to life or bodily function: End Stage renal disease, pleural effusion Decision regarding hospitalization or escalation of hospital level of care: Risk and benefits of admission for further treatment of patient's condition was considered. Due to patient's current clinical condition, high risk of decline and poor outcome if discharged and need for further inpatient management and monitoring, patient will be admitted to the hospital. Drug therapy requiring intensive monitoring for toxicity: IV Lasix, IV labetalol Parenteral controlled substances: N/A Decision regarding elective major surgery with identified patient or procedure risk factors: N/A Decision regarding emergency major surgery: N/A Decision not to resuscitate or to de-escalate care because of poor prognosis: N/A Diagnosis or treatment significantly limited by social determinants of health: N/A Critical Care Note Critical Care Time?: No Stability Stability form required: No Heart Score Heart Score: Heart Score Response (Comments) Value History Moderate Suspicious 1 EKG Normal 0 Age 45-64 1 Risk Factors >3 or Hx ASHD 2 Troponin 1-2 x's Normal limit 1 Total 5 I personally scribed for CHAR ALEJANDRA MD ([email or web address]) on 04/03/25 at 00:49. Electronically submitted by Cristhian Chirinos ([email or web address]). I personally scribed for CHAR ALEJANDRA MD ([email or web address]) on 04/03/25 at 00:51. Electronically submitted by Cristhian Chirinos ([email or web address]). CHAR ALEJANDRA MD Apr 03, 2025 00:23
[2025-04-03] MEDS: LABETALOL HCL 20 MG/4 ML VL IV ONE (00:30)
[2025-04-03] MEDS ORDERED: MORPHINE SULFATE INJ 2 MG/ml SYRG IV PRN ×2 (00:45)
[2025-04-03] MEDS ORDERED: ONDANSETRON HCL 4 MG/2 ML VIAL IV PRN (00:45)
[2025-04-03] MEDS ORDERED: ACETAMINOPHEN 325 MG TAB PO PRN (00:45)
[2025-04-03] MEDS ORDERED: NITROGLYCERIN 0.4 MG SL TAB SL PRN (00:45)
[2025-04-03] MEDS ORDERED: DOCUSATE SOD 100 MG CAP PO PRN (00:45)
[2025-04-03] MEDS ORDERED: IPRATROPIUM BROM 0.5 MG/2.5ML INH SOL NEB PRN (01:00)
[2025-04-03] MEDS ORDERED: DEXTROSE (50%) 50ML SYRG IV PRN (01:00)
[2025-04-03] MEDS ORDERED: LEVALBUTEROL HCL 1.25 MG/3 ML NEB NEB PRN (01:00)
[2025-04-03] MEDS ORDERED: traZODone HCL 50 MG TAB PO PRN (01:00)
[2025-04-03 01:18] VITALS: BP 191/30; PULSE 105; RESP 20; TEMP 98.2; O2SAT 94
--- NOTE | 2025-04-03 01:22 | DVHHPRES ---
History of Present Illness Resident Creating Document: AUDIE DODD RESIDENT History of Present Illness Ms. Jordan, a 45-year-old female with a complex medical history including diabetes mellitus, end-stage renal disease on hemodialysis (M/W/F), hypertension, prior pulmonary embolism, deep vein thrombosis, percutaneous transluminal coronary angioplasty, left below-knee amputation, right toe open wound, and right toe amputation, presented via EMS with a 3-day history of progressively worsening shortness of breath. Symptoms began following a 2-week course of nonproductive cough and chills. She missed her scheduled dialysis on 03/31/25 and has not taken her antihypertensive medications today. On EMS arrival, she was found to be hypoxic (SpO2 88% on room air), tachycardic, and hypertensive; oxygen therapy via nasal cannula at 2 L/min improved her saturation to 95%. She denies chest pain, palpitations, fever, productive cough, congestion, urinary symptoms, or other associated complaints. Differential diagnoses considered include CHF exacerbation, volume overload due to missed dialysis, pneumonia, PE, and other cardiopulmonary or metabolic causes. Past Medical History DM, ESRD (w/HD M/W/F), HTN, PE, DVT's, Obesity, right toe open wound. Past Surgical History BKA (left ), PTCA, right toe amputation, left upper extremity fistula Family History: Other (Noncontributory ) Smoke: <1 pack per day (half a pack a day. ) ALCOHOL: none Drugs: None Lives: with Family (at home with daughter ) Domestic Violence: Neg Review of Systems Constitutional: Yes: Malaise; No: Fever, Chills, Sweats, Weakness, Other Eyes: No: Pain, Vision change, Conjunctivae inflammation, Eyelid inflammation, Other, Redness ENT: No: Ear pain, Ear discharge, Nose pain, Nose discharge, Nose congestion, Mouth pain, Mouth swelling, Throat pain, Throat swelling, Other Respiratory: Cough, Dry, Shortness of breath, SOB with excertion; No: Wheezing, Hemoptysis, Pleuritic Pain, Sputum, Wheezing, Other Cardiovascular: Orthopnea, Paroxysmal Noc. Dyspnea, Edema; No: Chest Pain, Palpitations, Lt Headedness, Other Gastrointestinal: No: Nausea, Vomiting, Abdominal Pain, Diarrhea, Constipation, Melena, Hematochezia, Other Genitourinary: No Dysuria, No Frequency, No Incontinence, No Hematuria, No Retention, No Other Musculoskeletal: other (baseline, eft BKA, and right foot digits amputation- stumps clean ); No: neck pain, shoulder pain, arm pain, back pain, hand pain, leg pain, foot pain Skin: No: Rash, Lesions, Jaundice, Bruising, Other Neurological: No: Weakness, Numbness, Incoordination, Change in speech, Confusion, Seizures, Other Allergies: Coded Allergies: Penicillins (Verified Allergy, Unknown, 04/02/25) Medications Current Medications Medications Dose Ordered Sig/Luma Route Start Time Stop Time Status Last Admin Dose Admin Ondansetron HCl 4 mg Q4HP PRN IV 04/03/25 00:45 Docusate Sodium 100 mg BIDPRN PRN PO 04/03/25 00:45 Acetaminophen 650 mg Q6HP PRN PO 04/03/25 00:45 Morphine Sulfate 2 mg Q4HPRN PRN IV 04/03/25 00:45 Nitroglycerin 0.4 mg Q5MINP PRN SL 04/03/25 00:45 Morphine Sulfate 2 mg Q30M PRN IV 04/03/25 00:45 Furosemide 40 mg BID IV 04/03/25 10:00 Atorvastatin Calcium 40 mg HS PO 04/03/25 22:00 Aspirin 81 mg DAILY PO 04/04/25 10:00 Gabapentin 300 mg TID PO 04/03/25 06:00 Diagnostic Test (Pha) 1 strip ACHS 04/03/25 07:00 Insulin Human Regular ACHS SC 04/03/25 07:00 Dextrose 50 ml UD PRN IV 04/03/25 01:00 Trazodone HCl 50 mg HS PRN PO 04/03/25 01:00 Levalbuterol HCl 0.625 mg Q6HWA PRN NEB 04/03/25 01:00 Ipratropium [place] 0.5 mg Q6HWA PRN NEB 04/03/25 01:00 Exam Vital Signs Vital Signs Date Time Temp Pulse Resp B/P (MAP) Pulse Ox O2 Delivery O2 Flow Rate FiO2 04/03/25 00:49 105 04/02/25 21:34 98.2 20 191/130 (150) 94 98.2 General Appearance: Alert, Oriented X3, Cooperative, mild distress HEENT: Atraumatic, PERRLA, EOMI, Mucous membr. moist/pink Respiratory: Other (Left lower side crackles low air movement, 2 L of nasal ca nnula oxygen.) Cardiovascular: Regular rate, Normal S1, Normal S2, No murmurs Abdominal: Normal bowel sounds, Soft, No tenderness, No hepatospenomegaly, No masses Extremities: No clubbing, No cyanosis, Normal pulses, No tenderness/swelling, Other (Edema) Skin: No rashes, No breakdown, No significant lesion Neuro: Normal gait, Normal speech, Strength at 5/5 X4 ext, Normal tone, Sensation intact, Cranial nerves 3-12 NL Psych/Mental Status: Mental status NL, Mood NL Labs/Xrays Labs Test 04/02/25 22:47 04/02/25 22:37 Range/Units Urine Color Light-yellow Yellow Urine Clarity Clear Clear Urine pH 6.5 5.0-9.0 Urine Specific [place] 1.014 1.001-1.035 Urine Protein 3+ H Negative Urine Ketones Trace Negative Urine Blood 1+ H Negative /uL Urine Nitrite Negative Negative Urine Bilirubin Negative Negative Urine Urobilinogen Normal Negative mg/dL Urine Leukocyte Esterase Negative Negative /uL Urine RBC 1 0 - 4 /hpf Urine Microscopic WBC 1 0-5 /HPF Urine Squamous Epithelial Cells Few <5 /hpf Urine Bacteria Few H None Seen /hpf Urine Glucose 4+ H Normal mg/dL White Blood Count 9.8 4.4-10.8 10^3/uL Red Blood Count 4.13 4.0-5.20 10^6/uL Hemoglobin 11.7 L 12.2-16.2 g/dL Hematocrit 35.4 L 36.0-46.0 % Mean Corpuscular Volume 85.7 80.0-100.0 fL Mean Corpuscular Hemoglobin 28.4 28.0-32.0 pg Mean Corpuscular Hemoglobin Concent 33.2 32.0-36.0 g/dL Red Cell Distribution Width 14.4 H 11.8-14.3 % Platelet Count 228 140-450 10^3/uL Mean Platelet Volume 10.4 6.9-10.8 fL Neutrophils (%) (Auto) 77.5 37.0-80.0 % Lymphocytes (%) (Auto) 16.5 10.0-50.0 % Monocytes (%) (Auto) 4.1 0.0-12.0 % Eosinophils (%) (Auto) 1.0 0.0-7.0 % Basophils (%) (Auto) 0.9 0.0-2.0 % Neutrophils # (Auto) 7.6 1.6-8.6 10 ^3/uL Lymphocytes # (Auto) 1.6 0.4-5.4 10 ^3/uL Monocytes # (Auto) 0.4 0-1.3 10 ^3/uL Eosinophils # (Auto) 0.1 0-0.8 10 ^3/uL Basophils # (Auto) 0.1 0-0.2 10 ^3/uL Nucleated Red Blood Cells 0.1 % Sodium Level 140 136-145 mmol/L Potassium Level 4.7 3.5-5.1 mmol/L Chloride Level 107 98-107 mmol/L Carbon Dioxide Level 16 L 20-31 mmol/L Anion Gap 17 H 5-15 Blood Urea Nitrogen 59 H 9-23 mg/dL Creatinine 7.75 H 0.550-1.02 mg/dL Glomerular Filtration Rate Calc 6 >90 mL/min BUN/Creatinine Ratio 7.6 L 10.0-20.0 Serum Glucose 194 H 74-106 mg/dL Calcium Level 8.6 L 8.7-10.4 mg/dL Total Bilirubin 0.6 0.2-1.0 mg/dL Aspartate Amino Transferase (AST) 22 <34 U/L Alanine Aminotransferase (ALT) 15 7-40 U/L Alkaline Phosphatase 71 46-116 U/L Troponin I High Sensitivity 65 *H </=34 ng/L B-Type Natriuretic Peptide 3362.18 0-100 pg/mL Total Protein 6.4 5.7-8.2 g/dL Albumin 3.9 3.2-4.8 g/dL Assessment/Plan Assessment/Plan # ESRD: On hemodialysis a.m. MWF: Follows [facility] nephrology Dr. Morel S jaron up. Continue renal diet, low-potassium diet. If potassium rises, we will manage conservatively till HD. # secondary fluid overloaded state: Missed dialysis on Thursday , likely due to Ms. Dialysis, nephrology consulted we will arrange urgent dialysis [place]. # acute uremia secondary due to above: Trend renal functions. # Acute hypoxic respiratory failure: Likely due to above, on 2 L of nasal cannula oxygen, keep SpO2 around 92%, wean as tolerated. # Acute anion-gap metabolic acidosis: check lactate, likely due to uremia. # type 2 NSTEMI: Troponin 65, trended up, no EKG changes, putting the patient on telemetry overnight. Aspirin atorvastatin to continue , trend troponin. # Hypertensive urgency, presented with 191 /130, status post labetalol IV , controlled blood pressure slowly within 24-48 hours , restart home medications. # sinus tachycardia: Subsided, could be multifactorial, low possibility of PE/ DVT. We will monitor. Instead of albuterol we will use use levalbuterol # essential hypertension , uncontrolled: Target blood pressure 130/90 or below as per aha /ACC guidelines at home on amlodipine 10 they, previously on irbesar finney, presumably due to ESRD not appropriate # anemia of chronic disease likely due to underlying ESRD, no known baseline hemoglobin 11.7 transfusion threshold 7 # cardiomegaly likely hypertensive heart disease versus dilated cardiomyopathy: Further history, serum alcohol, UDS, TSH to check. # dyslipidemia on atorvastatin 20 daily> changed to 40 mg daily high intensity # peripheral neuropathy, chronic back pain: Gabapentin 300 mg t.i.d. # obesity grade 1: BMI 34.3 on Ozempic to weight loss. # diabetes mellitus: on both G LP 1, basic color 55 units subcutaneously b.i.d. given ESRD will keep only on SSI mild with BG 140-180 in hospital. recheck HbA1C # insomnia: trazodone 50 mg tab nightly. # COPD with or without Underlying asthma: although cardiac asthma can not be fully ruled out. As needed albuterol/ipratropium. # Acute on chronic Congestive heart failure: Dyspnea on exertion, no previous echo on file, elevated BNP 3362.18 , diuresis, fluid removal, echo, we will review the possibility of introducing to GDM T and further optimization, daily weight, electrolyte correction. # Pleural effusion: To put left lower lung pleural effusion, Noted in chest x- ray, likely due to Ms. Dialysis, we will check interval changes post dialysis/fluid removal. # possibility of community-acquired pneumonia not completely Ruled out: though low probability, We will check common viral panel and We will start patient on ceftriaxone azithromycin if WBC rises /Develop fever. # poor medical adherence: Patient is counseled regarding the importance of medical adherence at the bedside. # Allergic to penicillin, we will avoid penicillin and penicillin containing medications. # History of DVT, right LL and pulmonary embolism: patients reports on being eliquis. restart home dose. # surgical history of below-knee amputation on the left side, and right toe amputation, left upper extremity fistula, PTCA # Nicotine abuse: chronic smoker. smoking cessation counseling done at bedside 11min, as needed patch # Right toe open wound: follows Dr. Fried. the patient is reluctant to physical exam to the toe as she believes it is ''well'' and she does not want us to evaluate. PCP: in file. Specialist Relevant To Admission: Nephrology, Dr. Morel group for HD. Case discussed with Dr. Hankins. Code Status: Full Code. Care plan and goals of care discussion needed total 33 minutes bedside. patient is agreeable to the plan and admission to the telemetry floor. Plan discussed with: Patient My Orders Orders - AUDIE DODD RESIDENT Procedure Category Date Status Time Admit ADMIT 04/03/25 Transmitted 00:35 Allergies ERIK 04/03/25 In Process 00:35 Code Status CODE 04/03/25 Transmitted 00:35 Renal DIET 04/03/25 Transmitted Standard(2gna,3gk,Lopho) Breakfast Oxygen Per Hour RT 04/03/25 Transmitted 00:35 Ondansetron Hcl PHA 04/03/25 In Process (Zofran) 00:45 Docusate Sodium PHA 04/03/25 In Process Capsule (Colace 00:45 Complete Blood Count LAB 04/04/25 Verified 04:00 Comprehensive LAB 04/04/25 Verified Metabolic Panel 04:00 Echo 2d Mode Cardiac US 04/03/25 Logged DOP 00:35 Condition: Serious ERIK 04/03/25 In Process 00:35 Acetaminophen Tablet PHA 04/03/25 In Process (Tylenol Tablet) 00:45 Morphine Sulfate PHA 04/03/25 In Process Injection 00:45 Nitroglycerin PHA 04/03/25 In Process Sublingual (Ntrostat 00:45 Morphine Sulfate PHA 04/03/25 In Process Injection 00:45 Oxygen By Nasal RT 04/03/25 Transmitted Cannula 00:35 Stat Ekg For Chest ERIK 04/03/25 In Process Pain 00:35 Notify Md Of Changes ERIK 04/03/25 In Process From Base 00:35 Card Tape Converter Operator For ERIK 04/03/25 In Process 24 Hours 00:35 Emergency Dysrhythmia ERIK 04/03/25 In Process Protocol 00:35 Rhythm Strips Once ERIK 04/03/25 In Process Every Shift 00:35 *Dr. Morel [facility] CONS 04/03/25 Transmitted -[place] 00:54 Furosemide Injection PHA 04/03/25 In Process (Lasix Injection) 10:00 Complete Blood Count LAB 04/03/25 Logged 04:00 Comprehensive LAB 04/03/25 Logged Metabolic Panel 04:00 Atorvastatin (Lipitor) PHA 04/03/25 In Process 22:00 Lactic Acid W/ Reflex LAB 04/03/25 Logged Order 00:54 Drug Screen LAB 04/03/25 Logged 00:54 Thyroid Stimulating LAB 04/03/25 Logged Hormone 00:54 Blood Alcohol LAB 04/03/25 Logged 00:54 Gabapentin Capsule PHA 04/03/25 In Process (Neurontin Capsule) 06:00 Glucose Blood PHA 04/03/25 In Process (Accu-Chek Comfort 07:00 Insulin R (Human) PHA 04/03/25 In Process (Insulin R) 07:00 Dextrose 50% Syringe PHA 04/03/25 In Process 01:00 Trazodone Hcl PHA 04/03/25 In Process (Desyrel) 01:00 Levalbuterol Hcl PHA 04/03/25 In Process (Xopenex Medneb) 01:00 Ipratropium Medneb PHA 04/03/25 In Process (Atrovent Medneb) 01:00 Med Neb Initial RT 04/03/25 Logged Treatment 00:54 Covid19 Antigen Jeri LAB 04/03/25 Logged Rapid Influenza A&B LAB 04/03/25 Logged 00:54 Hemoglobin A1c LAB 04/03/25 Logged 01:04 Aspirin Tablet PHA 04/04/25 In Process 10:00 Magnesium LAB 04/03/25 Logged 04:00 Date of Service: Apr 03, 2025 Billing Provider: BURKE HANKINS MD Common Visit Codes: [id number] INP/OBS CARE (HIGH) Secondary Visit Codes: [id number] CARE PLAN 30 MINUTES AUDIE DODD RESIDENT Apr 03, 2025 01:22
[2025-04-03] MEDS: ASPirin 81 mg TAB PO ONE (03:42)
[2025-04-03] MEDS: amLODIPine BESYLATE 5 MG TAB PO ONE (03:43)
[2025-04-03] MEDS: ATORVASTATIN 20 MG TAB PO ONE (03:44)
[2025-04-03] MEDS: GABAPENTIN 300 MG CAP PO SCH (06:05)
[2025-04-03] MEDS: InsuLIN REG 1unit/0.01ml Soln (100units/ml) SC SCH (06:05)
[2025-04-03] MEDS: ACCU-CHEK COMFORT CURVE STRIP VI SCH (06:27)
[2025-04-03 07:20] VITALS: O2SAT 98
[2025-04-03 07:37] LABS: Amphetamine Screen, Urine Neg (NEGATIVE); Barbiturate Scree,Urine Neg (NEGATIVE); Benzodiazephine Screen, Urine Neg (NEGATIVE); Cannabinoid Screen, Urine Neg (NEGATIVE); Cocaine Screen, Urine Neg (NEGATIVE); Opiate Scree,Urine Neg (NEGATIVE); Phencyclidine Screen, Urine Neg (NEGATIVE)
[2025-04-03 07:44] LABS: Basophils # (auto) 0 10 ^3/uL (0-0.2); Basophils % (auto) 0.3 % (0.0-2.0); Eosinophils # (auto) 0 10 ^3/uL (0-0.8); Eosinophils % (auto) 0.4 % (0.0-7.0); Hematocrit 35.2 % (36.0-46.0); Hemoglobin 11.4 g/dL (12.2-16.2); Lymphocytes # (auto) 1.3 10 ^3/uL (0.4-5.4); Lymphocytes % (auto) 13.5 % (10.0-50.0); Mean Corpuscular Hemoglobin 27.9 pg (28.0-32.0); Mean Corpuscular Hgb Conc. 32.5 g/dL (32.0-36.0); Monocytes # (auto) 0.3 10 ^3/uL (0-1.3); Monocytes % (auto) 3.6 % (0.0-12.0); Neutrophils # (auto) 7.8 10 ^3/uL (1.6-8.6); Neutrophils % (auto) 82.2 % (37.0-80.0); Nucleated Red Blood Cells % 0.1 %; Platelet Count (auto) 215 10^3/uL (140-450); Red Cell Distribution Width 14.7 % (11.8-14.3); White Blood Cell 9.4 10^3/uL (4.4-10.8)
[2025-04-03 08:02] LABS: Alanine Aminotransferase 12 U/L (7-40); Albumin 3.9 g/dL (3.2-4.8); Alkaline Phosphatase 65 U/L (46-116); Anion Gap 17 (5-15); Aspartate Aminotransferase 16 U/L (<34); BUN/Creatinine Ratio 8.3 (10.0-20.0); Bilirubin, Total 0.6 mg/dL (0.2-1.0); Calcium 9.1 mg/dL (8.7-10.4); Sodium 141 mmol/L (136-145); Total Protein 6.3 g/dL (5.7-8.2)
[2025-04-03 08:06] LABS: Blood Urea Nitrogen 65 mg/dL (9-23); Carbon Dioxide 16 mmol/L (20-31); Chloride 108 mmol/L (98-107); Glucose 191 mg/dL (74-106)
[2025-04-03 08:52] LABS: COVID19 ANTIGEN SOFIA FIA NEGATIVE (NEGATIVE); Rapid Influenza A Negative (Negative); Rapid Influenza B Negative (Negative)
[2025-04-03 08:55] LABS: Magnesium 2.5 mg/dL (1.6-2.6)
--- NOTE | 2025-04-03 09:15 | DVHINCON2 ---
Date of service: Apr 03, [address] Alexis Reason for Consultation End-stage renal disease to manage hemodialysis History of Present Illness Patient is a 45-year-old female with past medical history significant for DM, ESRD on HD M/W/F, HTN, DVT, PE, PTCA, peripheral arterial disease, left BKA, and right foot digits amputation home missed hemodialysis for the past five days presented to the hospital with progressive shortness of breath and hypoxemia. Nephrology is consulted to manage her hemodialysis Past Medical History DM, ESRD w/HD M/W/F, HTN, DVT, PE, Past Surgical History left BKA, and right foot digits amputation. PTCA AV fistula Allergies: Coded Allergies: Penicillins (Verified Allergy, Unknown, 04/02/25) Current Medications Current Medications Medications (Trade) Dose Ordered Sig/Luma Route PRN Reason Start Time Stop Time Status Last Admin Ondansetron HCl (Zofran) 4 mg Q4HP PRN IV NAUSEA / VOMITING 04/03/25 00:45 Docusate Sodium (Colace Capsule) 100 mg BIDPRN PRN PO FOR CONSTIPATION 04/03/25 00:45 Acetaminophen (Tylenol Tablet) 650 mg Q6HP PRN PO PAIN SCALE 1-3 OR TEMP>100.4 04/03/25 00:45 Morphine Sulfate 2 mg Q4HPRN PRN IV SEVERE PAIN (7-10 PAIN SCALE) 04/03/25 00:45 Nitroglycerin (Ntrostat Sublingual) 0.4 mg Q5MINP PRN SL FOR CHEST PAIN 04/03/25 00:45 Morphine Sulfate 2 mg Q30M PRN IV FOR CHEST PAIN 04/03/25 00:45 Furosemide (Lasix Injection) 40 mg BID IV 04/03/25 10:00 04/03/25 11:53 Atorvastatin Calcium (Lipitor) 40 mg HS PO 04/03/25 22:00 Aspirin 81 mg DAILY PO 04/04/25 10:00 Gabapentin (Neurontin Capsule) 300 mg TID PO 04/03/25 06:00 04/03/25 14:00 Diagnostic Test (Pha) (Accu-Chek Comfort Curve T) 1 strip ACHS 04/03/25 07:00 04/03/25 11:54 Insulin Human Regular (InsuLIN R) ACHS SC 04/03/25 07:00 04/03/25 11:53 Dextrose 50 ml UD PRN IV Blood Sugar LESS THAN 60 04/03/25 01:00 Trazodone HCl (Desyrel) 50 mg HS PRN PO INSOMNIA 04/03/25 01:00 Levalbuterol HCl (Xopenex Medneb) 0.625 mg Q6HWA PRN NEB SHORTNESS OF BREATH 04/03/25 01:00 Ipratropium [place] (Atrovent Medneb) 0.5 mg Q6HWA PRN NEB SHORTNESS OF BREATH 04/03/25 01:00 Nicotine (Nicoderm 7MG/ 24HR) 1 patch DAILY TD 04/03/25 10:00 Apixaban (Eliquis) 5 mg BID PO 04/03/25 10:00 04/03/25 11:52 Review of Systems All 12 item review of systems reviewed with the patient nonsignificant except what is mentioned in the history of present illness H&P Exam Vital Signs/I&O Vital Sign Date Time Temp Pulse Resp B/P (MAP) Pulse Ox O2 Delivery O2 Flow Rate FiO2 04/03/25 13:45 81 15 145/79 (101) 99 04/03/25 08:00 Nasal Cannula* 2 28 04/03/25 08:00 98.8 98.8 Physical Exam Patient examined on HD, BP stable Patient is awake moderate respiratory distress O2 nasal cannula Lungs bibasilar crackles Cardiac exam regular rate and rhythm GI soft nontender was normal Extremity below-knee amputation 1+ edema Neuro nonfocal Labs/Diagnostic Data Labs/Diagnostic Data Laboratory Tests Test 04/03/25 08:00 04/03/25 07:10 04/03/25 05:58 04/03/25 01:26 Range/Units Influenza Type A Antigen Negative Negative Influenza Type B Antigen Negative Negative SARS-CoV-2 Antigen (Rapid) Negative NEGATIVE White Blood Count 9.4 4.4-10.8 10^3/uL Red Blood Count 4.10 4.0-5.20 10^6/uL Hemoglobin 11.4 L 12.2-16.2 g/dL Hematocrit 35.2 L 36.0-46.0 % Mean Corpuscular Volume 86.0 80.0-100.0 fL Mean Corpuscular Hemoglobin 27.9 L 28.0-32.0 pg Mean Corpuscular Hemoglobin Concent 32.5 32.0-36.0 g/dL Red Cell Distribution Width 14.7 H 11.8-14.3 % Platelet Count 215 140-450 10^3/uL Mean Platelet Volume 10.6 6.9-10.8 fL Neutrophils (%) (Auto) 82.2 H 37.0-80.0 % Lymphocytes (%) (Auto) 13.5 10.0-50.0 % Monocytes (%) (Auto) 3.6 0.0-12.0 % Eosinophils (%) (Auto) 0.4 0.0-7.0 % Basophils (%) (Auto) 0.3 0.0-2.0 % Neutrophils # (Auto) 7.8 1.6-8.6 10 ^3/uL Lymphocytes # (Auto) 1.3 0.4-5.4 10 ^3/uL Monocytes # (Auto) 0.3 0-1.3 10 ^3/uL Eosinophils # (Auto) 0 0-0.8 10 ^3/uL Basophils # (Auto) 0 0-0.2 10 ^3/uL Nucleated Red Blood Cells 0.1 % Sodium Level 141 136-145 mmol/L Potassium Level 5.0 3.5-5.1 mmol/L Chloride Level 108 H 98-107 mmol/L Carbon Dioxide Level 16 L 20-31 mmol/L Anion Gap 17 H 5-15 Blood Urea Nitrogen 65 H 9-23 mg/dL Creatinine 7.87 H 0.550-1.02 mg/dL Glomerular Filtration Rate Calc 6 >90 mL/min BUN/Creatinine Ratio 8.3 L 10.0-20.0 Serum Glucose 191 H 74-106 mg/dL Hemoglobin A1c 7.5 H <5.7 % A1C Calcium Level 9.1 8.7-10.4 mg/dL Phosphorus Level 9.7 H 2.4-5.1 mg/dL Magnesium Level 2.5 1.6-2.6 mg/dL Total Bilirubin 0.6 0.2-1.0 mg/dL Aspartate Amino Transferase (AST) 16 <34 U/L Alanine Aminotransferase (ALT) 12 7-40 U/L Alkaline Phosphatase 65 46-116 U/L Total Protein 6.3 5.7-8.2 g/dL Albumin 3.9 3.2-4.8 g/dL Vitamin D 25-Hydroxy 10.5 L 30.0-100 ng/mL Thyroid Stimulating Hormone (TSH) 2.32 0.55-4.78 uIU/mL Parathyroid Hormone (Intact) 487.7 H 18.4-80.1 pg/mL Plasma/Serum Blood Alcohol < 3.0 <10 mg/dL Hepatitis B Surface Antigen Negative Negative Hepatitis C Antibody Negative Negative POC Glucose 194 H 70-106 mg/dl Lactic Acid Level 1.1 0.4-2.0 mmol/L Test 04/02/25 22:47 04/02/25 22:37 Range/Units Urine Color Light-yellow Yellow Urine Clarity Clear Clear Urine pH 6.5 5.0-9.0 Urine Specific [place] 1.014 1.001-1.035 Urine Protein 3+ H Negative Urine Ketones Trace Negative Urine Blood 1+ H Negative /uL Urine Nitrite Negative Negative Urine Bilirubin Negative Negative Urine Urobilinogen Normal Negative mg/dL Urine Leukocyte Esterase Negative Negative /uL Urine RBC 1 0 - 4 /hpf Urine Microscopic WBC 1 0-5 /HPF Urine Squamous Epithelial Cells Few <5 /hpf Urine Bacteria Few H None Seen /hpf Urine Glucose 4+ H Normal mg/dL Urine Opiates Screen Neg NEGATIVE Urine Fentanyl Screen Neg NEGATIVE Urine Barbiturates Screen Neg NEGATIVE Urine Phencyclidine Screen Neg NEGATIVE Urine Amphetamines Screen Neg NEGATIVE Urine Benzodiazepines Screen Neg NEGATIVE Urine Cocaine Screen Neg NEGATIVE Urine Cannabinoids Screen Neg NEGATIVE White Blood Count 9.8 4.4-10.8 10^3/uL Red Blood Count 4.13 4.0-5.20 10^6/uL Hemoglobin 11.7 L 12.2-16.2 g/dL Hematocrit 35.4 L 36.0-46.0 % Mean Corpuscular Volume 85.7 80.0-100.0 fL Mean Corpuscular Hemoglobin 28.4 28.0-32.0 pg Mean Corpuscular Hemoglobin Concent 33.2 32.0-36.0 g/dL Red Cell Distribution Width 14.4 H 11.8-14.3 % Platelet Count 228 140-450 10^3/uL Mean Platelet Volume 10.4 6.9-10.8 fL Neutrophils (%) (Auto) 77.5 37.0-80.0 % Lymphocytes (%) (Auto) 16.5 10.0-50.0 % Monocytes (%) (Auto) 4.1 0.0-12.0 % Eosinophils (%) (Auto) 1.0 0.0-7.0 % Basophils (%) (Auto) 0.9 0.0-2.0 % Neutrophils # (Auto) 7.6 1.6-8.6 10 ^3/uL Lymphocytes # (Auto) 1.6 0.4-5.4 10 ^3/uL Monocytes # (Auto) 0.4 0-1.3 10 ^3/uL Eosinophils # (Auto) 0.1 0-0.8 10 ^3/uL Basophils # (Auto) 0.1 0-0.2 10 ^3/uL Nucleated Red Blood Cells 0.1 % Sodium Level 140 136-145 mmol/L Potassium Level 4.7 3.5-5.1 mmol/L Chloride Level 107 98-107 mmol/L Carbon Dioxide Level 16 L 20-31 mmol/L Anion Gap 17 H 5-15 Blood Urea Nitrogen 59 H 9-23 mg/dL Creatinine 7.75 H 0.550-1.02 mg/dL Glomerular Filtration Rate Calc 6 >90 mL/min BUN/Creatinine Ratio 7.6 L 10.0-20.0 Serum Glucose 194 H 74-106 mg/dL Calcium Level 8.6 L 8.7-10.4 mg/dL Total Bilirubin 0.6 0.2-1.0 mg/dL Aspartate Amino Transferase (AST) 22 <34 U/L Alanine Aminotransferase (ALT) 15 7-40 U/L Alkaline Phosphatase 71 46-116 U/L Troponin I High Sensitivity 65 *H </=34 ng/L B-Type Natriuretic Peptide 3362.18 0-100 pg/mL Total Protein 6.4 5.7-8.2 g/dL Albumin 3.9 3.2-4.8 g/dL Assessment End-stage renal disease missed hemodialysis Acute hypoxic respiratory failure Congestive heart failure exacerbation Hypertension Coronary artery disease DVT Diabetes mellitus type 2 Peripheral arterial disease Left Below-knee amputation Right midtarsal foot amputation Hyperphosphatemia Mild anemia of chronic Kidney disease Recommendations Continue with UF 3-4 L as tolerated Resume home medications Fluid restrictions Renal diet Blood pressure control Renvela 2,400 mg po TIDWM Insulin sliding scale We will continue to follow Patient seen and examined by myself. I discussed my plan of care with the patient and primary nurse at the bedside I would like to thank Dr. Alexis for the consult, will follow up Plan discussed with: Patient ISABELA CAMILO MD Apr 03, 2025 09:15
[2025-04-03 10:27] LABS: Hepatitis B Surface Antigen Negative (Negative); Hepatitis C Antibody Negative (Negative)
[2025-04-03] MEDS: APIXABAN 5 MG TAB PO SCH (11:52)
[2025-04-03] MEDS: NICOTINE 7MG/24HR TOPICAL PATCH TD SCH (11:53)
[2025-04-03] MEDS: FUROSEMIDE 40 MG/4 ML VIAL IV SCH (11:53)
[2025-04-03 12:00] VITALS: PULSE 79; RESP 16; O2SAT 100
--- NOTE | 2025-04-03 12:09 | ECG ---
[facility] Test Date: 2025-04-02 Test Time: 21:40:31 Pat Name: RAAD CORBIN Department: ED Room: 0288T Gender: F Building Insulation Supervisor: JALEN : 1980 Requested By: CHAR ALEJANDRA Order Number: [id number] Reading MD: Tulio Storm Measurements Intervals [place] Rate: 105 P: 45 PA: 142 QRS: -10 QRSD: 90 T: 130 QT: 356 QTc: 471 Interpretive Statements Sinus tachycardia Atrial premature complex Probable left atrial enlargement Abnormal T, consider ischemia, lateral leads Electronically Signed On 04-04-2025 22:48:27 PDT by Tulio Storm Please click the below link to view image of tracing.
[2025-04-03] MEDS ORDERED: MORPHINE SULFATE 4 MG/ML SYR/VIAL IV PRN (15:45)
[2025-04-03] MEDS: SEVELAMER 800 MG TAB PO SCH (18:00)
--- NOTE | 2025-04-03 18:49 | DVHPNRES ---
Progress Note Date Seen: Apr 03, 2025 Resident Creating Document: IGGY MARRERO RESIDENT Medical Necessity Reason Pt with a Central, PICC or Fol: No Subjective Review of Systems Ms. Jordan, a 45-year-old female with a complex medical history including diabetes mellitus, end-stage renal disease on hemodialysis (M/W/F), hypertension, prior pulmonary embolism, deep vein thrombosis, percutaneous transluminal coronary angioplasty, left below-knee amputation, right toe open wound, and right toe amputation, presented via EMS with a 3-day history of progressively worsening shortness of breath. Symptoms began following a 2-week course of nonproductive cough and chills. She missed her scheduled dialysis on 03/31/25 and has not taken her antihypertensive medications today. On EMS arrival, she was found to be hypoxic (SpO2 88% on room air), tachycardic, and hypertensive; oxygen therapy via nasal cannula at 2 L/min improved her saturation to 95%. She denies chest pain, palpitations, fever, productive cough, congestion, urinary symptoms, or other associated complaints. Differential diagnoses considered include CHF exacerbation, volume overload due to missed dialysis, pneumonia, PE, and other cardiopulmonary or metabolic causes. Past medical history: DM, ESRD (w/HD M/W/F), HTN, PE, DVT's, Obesity, right toe open wound. Past surgical history: BKA (left ), PTCA, right toe amputation, left upper extremity fistula.. Social history: Smokes half a pack a day, denies drinking or drug use. Lives with daughter. Patient seen and examined at bedside. His lower extremity swelling, pending dialysis Objective vital signs Vital Sign Date Time Temp Pulse Resp B/P (MAP) Pulse Ox O2 Delivery O2 Flow Rate FiO2 04/03/25 17:45 81 15 158/87 (110) 99 04/03/25 12:00 Nasal Cannula* 3 32 04/03/25 08:00 98.8 98.8 medications Current Medications Medications Dose Ordered Sig/Luma Route Start Time Stop Time Status Last Admin Dose Admin Ondansetron HCl 4 mg Q4HP PRN IV 04/03/25 00:45 Docusate Sodium 100 mg BIDPRN PRN PO 04/03/25 00:45 Acetaminophen 650 mg Q6HP PRN PO 04/03/25 00:45 Morphine Sulfate 2 mg Q4HPRN PRN IV 04/03/25 00:45 Cancel Nitroglycerin 0.4 mg Q5MINP PRN SL 04/03/25 00:45 Morphine Sulfate 2 mg Q30M PRN IV 04/03/25 00:45 Furosemide 40 mg BID IV 04/03/25 10:00 04/03/25 11:53 40 MG Atorvastatin Calcium 40 mg HS PO 04/03/25 22:00 Aspirin 81 mg DAILY PO 04/04/25 10:00 Gabapentin 300 mg TID PO 04/03/25 06:00 04/03/25 14:00 300 MG Diagnostic Test (Pha) 1 strip ACHS 04/03/25 07:00 04/03/25 17:00 1 STRIP Insulin Human Regular ACHS SC 04/03/25 07:00 04/03/25 17:32 3 UNITS Dextrose 50 ml UD PRN IV 04/03/25 01:00 Trazodone HCl 50 mg HS PRN PO 04/03/25 01:00 Levalbuterol HCl 0.625 mg Q6HWA PRN NEB 04/03/25 01:00 Ipratropium [place] 0.5 mg Q6HWA PRN NEB 04/03/25 01:00 Nicotine 1 patch DAILY TD 04/03/25 10:00 Apixaban 5 mg BID PO 04/03/25 10:00 04/03/25 11:52 5 MG Sevelamer HCl 2,400 mg TIDWM PO 04/03/25 18:00 Morphine Sulfate 2 mg Q4HPRN PRN IV 04/03/25 15:45 Examination Morbidly obese female patient lying in the bed comfortably, no acute distress General: Morbidly obese palor, mucosae are moist Cardiovascular: Regular S1 and S2. No murmurs, gallops or rubs. No JVD elevation. No pedal edema Respiratory: Decreased air entry on auscultation bilaterally, left lower crackles heard. Requiring NC supplementation Abdomen: Soft, nontender, nondistended, normoactive bowel sounds, no rebound tenderness, no organomegaly, no masses Genitourinary: Deferred MSK/skin: Left below-knee amputation Neurological: No motor, no sensitive deficits, normal speech. Pupils are isocoric and reactive. Psych/Mental Status: A/Ox3 laboratory and microbiology Laboratory Tests 04/03/25 07:10 Test 04/03/25 07:10 Range/Units Serum Glucose 191 H 74-106 mg/dL Labs and/or images reviewed: Labs reviewed by me, Image(s) reviewed by me Problem List/Assessment/Plan Problem List/Assessment/Plan ESRD on hemodialysis M/W/F Fluid overload secondary to above Pulmonary edema Uremia secondary to above Anemia of chronic kidney disease Pulmonary effusion secondary to above Hyperphosphatemia Secondary hyperparathyroidism Vitamin-D deficiency Application Analyst consulted-pending hemodialysis today Renal diet, low-potassium diet Patient was hemodialysis last Thursday Supplemented vitamin-D Hepatitis panel pending COVID and then flu negative Sevelamer 2400 mg TID Acute hypoxic respiratory failure secondary to above Continue oxygen supplementation Anion gap metabolic acidosis secondary to uremia Monitor CMP Acute on chronic congestive heart failure Type 2 NSTEMI Hypertensive urgency Likely hypertensive heart disease Dyslipidemia EKG unremarkable for ST changes Telemetry admission Continue aspirin and atorvastatin Furosemide 40 IV b.i.d. Troponin BNP 3362 Echocardiogram pending Diabetes mellitus-hemoglobin A1c 7.5 Peripheral neuropathy Gabapentin 300 mg TID Mild ISS Secondary coagulable state History of DVT Continue home dose Eliquis COPD-no exacerbation PRN nebulized treatments Chronic nicotine dependence Counseled regarding cessation for more than 20 minutes Nicotine patch. Right toe open wound Wound consult Heparin 5000 units for DVT prophylaxis Protonix 40 mg p.o. daily Plan discussed with patient in his all questions have been answered Goals of care discussed for more than 25 minutes, full code status Case discussed with Dr. Peterson Plan discussed with: Patient Date of Service: Apr 03, 2025 Billing Provider: JANAK SALEEM MD Common Visit Codes: [id number] INP/OBS CARE(HIGH) IGGY MARRERO RESIDENT Apr 03, 2025 18:49 JANAK SALEEM MD Apr 10, 2025 21:46
[2025-04-03 19:05] VITALS: O2SAT 100
[2025-04-03] MEDS: SODIUM CHL 0.9% 1000 ML BAG XX ONE (19:25)
[2025-04-03 20:00] VITALS: PULSE 20; RESP 20
[2025-04-03] MEDS: ATORVASTATIN 20 MG TAB PO SCH (22:55)
[2025-04-03] MEDS: ERGOCALCIFEROL 50,000 UNIT(1.25MG) CAP PO SCH (23:00)
[2025-04-04] VITALS (9 sets, daily range): BP systolic 161–183; BP diastolic 75–98; PULSE 74–84; RESP 17–20; TEMP 98–98.6; O2SAT 94–96
[2025-04-04] MEDS ORDERED: HYDR100T10 PO (03:02)
[2025-04-04] MEDS ORDERED: GABA-1250 PO (03:02)
[2025-04-04] MEDS ORDERED: APIX2.5T PO (03:02)
[2025-04-04] MEDS ORDERED: SEVE400T PO (03:02)
[2025-04-04] MEDS ORDERED: INSU1INJ19 SC (03:02)
[2025-04-04] MEDS ORDERED: ASPI81CH59 PO (03:02)
[2025-04-04] MEDS ORDERED: SEMA4INJ SC (03:02)
[2025-04-04 09:39] LABS: Basophils # (auto) 0.1 10 ^3/uL (0-0.2); Basophils % (auto) 1.3 % (0.0-2.0); Eosinophils # (auto) 0.2 10 ^3/uL (0-0.8); Eosinophils % (auto) 2.4 % (0.0-7.0); Hematocrit 37.8 % (36.0-46.0); Hemoglobin 12.5 g/dL (12.2-16.2); Lymphocytes # (auto) 1.6 10 ^3/uL (0.4-5.4); Lymphocytes % (auto) 21.8 % (10.0-50.0); Mean Corpuscular Hemoglobin 27.9 pg (28.0-32.0); Mean Corpuscular Hgb Conc. 33.1 g/dL (32.0-36.0); Mean Corpuscular Volume 84.3 fL (80.0-100.0); Monocytes # (auto) 0.4 10 ^3/uL (0-1.3); Neutrophils % (auto) 69.5 % (37.0-80.0); Platelet Count (auto) 258 10^3/uL (140-450); Red Blood Cells 4.49 10^6/uL (4.0-5.20); Red Cell Distribution Width 14.8 % (11.8-14.3); White Blood Cell 7.2 10^3/uL (4.4-10.8)
[2025-04-04 09:47] LABS: Alanine Aminotransferase 12 U/L (7-40); Albumin 3.7 g/dL (3.2-4.8); Alkaline Phosphatase 68 U/L (46-116); Anion Gap 12 (5-15); Aspartate Aminotransferase 13 U/L (<34); BUN/Creatinine Ratio 6.5 (10.0-20.0); Calcium 8.8 mg/dL (8.7-10.4); Carbon Dioxide 30 mmol/L (20-31); Chloride 104 mmol/L (98-107); Potassium 4.2 mmol/L (3.5-5.1); Total Protein 5.9 g/dL (5.7-8.2)
[2025-04-04 09:48] LABS: Bilirubin, Total 0.6 mg/dL (0.2-1.0); Blood Urea Nitrogen 35 mg/dL (9-23); Glucose 154 mg/dL (74-106); Sodium 146 mmol/L (136-145)
[2025-04-04] MEDS: ASPirin 81 mg TAB PO SCH (10:48)
[2025-04-04] MEDS: FREE WATER PO SCH (11:00)
--- NOTE | 2025-04-04 11:59 | DVHPN2 ---
Progress Note Date Seen: Apr 04, 2025 Medical Necessity Reason Pt with a Central, PICC or Fol: No Subjective Patient reports: No new complaints Other Systems: Patient seen and examined by myself today in follow-up Objective vital signs Vital Sign Date Time Temp Pulse Resp B/P (MAP) Pulse Ox O2 Delivery O2 Flow Rate FiO2 04/04/25 09:03 95 Room Air 0.0 04/04/25 09:03 N/A 04/04/25 08:31 98.6 74 17 167/75 (105) 98.6 Total Intake and Output 04/03/25 04/03/25 04/04/25 15:00 23:00 07:00 Intake Total 0 ml Balance 0 ml medications Current Medications Medications Dose Ordered Sig/Luma Route Start Time Stop Time Status Last Admin Dose Admin Ondansetron HCl 4 mg Q4HP PRN IV 04/03/25 00:45 Docusate Sodium 100 mg BIDPRN PRN PO 04/03/25 00:45 Acetaminophen 650 mg Q6HP PRN PO 04/03/25 00:45 Morphine Sulfate 2 mg Q4HPRN PRN IV 04/03/25 00:45 Cancel Nitroglycerin 0.4 mg Q5MINP PRN SL 04/03/25 00:45 Morphine Sulfate 2 mg Q30M PRN IV 04/03/25 00:45 Furosemide 40 mg BID IV 04/03/25 10:00 04/04/25 08:25 40 MG Atorvastatin Calcium 40 mg HS PO 04/03/25 22:00 04/03/25 22:55 40 MG Aspirin 81 mg DAILY PO 04/04/25 10:00 04/04/25 10:48 81 MG Gabapentin 300 mg TID PO 04/03/25 06:00 04/04/25 06:12 300 MG Diagnostic Test (Pha) 1 strip ACHS 04/03/25 07:00 04/04/25 06:18 1 STRIP Insulin Human Regular ACHS SC 04/03/25 07:00 04/03/25 23:01 4 UNITS Dextrose 50 ml UD PRN IV 04/03/25 01:00 Trazodone HCl 50 mg HS PRN PO 04/03/25 01:00 Levalbuterol HCl 0.625 mg Q6HWA PRN NEB 04/03/25 01:00 Ipratropium [place] 0.5 mg Q6HWA PRN NEB 04/03/25 01:00 Nicotine 1 patch DAILY TD 04/03/25 10:00 Apixaban 5 mg BID PO 04/03/25 10:00 04/04/25 10:47 5 MG Sevelamer HCl 2,400 mg TIDWM PO 04/03/25 18:00 04/04/25 08:23 2,400 MG Morphine Sulfate 2 mg Q4HPRN PRN IV 04/03/25 15:45 Ergocalciferol 50,000 unit Q7D PO 04/03/25 18:45 04/03/25 23:00 50,000 UNIT Purified Water 250 ml Q1HR PO 04/04/25 11:00 04/04/25 13:00 Examination: LUNGS:Normal, CVS:Normal, MSK:Abnormal laboratory and microbiology Laboratory Tests 04/04/25 09:16 Test 04/04/25 09:16 Range/Units Serum Glucose 154 H 74-106 mg/dL Problem List/Assessment/Plan Problem List/Assessment/Plan End-stage renal disease missed hemodialysis Acute hypoxic respiratory failure Congestive heart failure exacerbation Hypertension Coronary artery disease DVT Diabetes mellitus type 2 Peripheral arterial disease Left Below-knee amputation Right midtarsal foot amputation Hyperphosphatemia Vitamin-D deficiency Severe secondary hyperparathyroidism Mild anemia of chronic Kidney disease Recommendations Hemodialysis tomorrow Resume home medications Fluid restrictions Renal diet Blood pressure control Renvela 2,400 mg po TIDWM Insulin sliding scale We will continue to follow Plan discussed with: Patient My Orders My Orders Orders - ISABELA CAMILO MD Procedure Category Date Status Time Sevelamer (Renagel) PHA 04/03/25 In Process 18:00 ISABELA CAMILO MD Apr 04, 2025 11:59
--- NOTE | 2025-04-04 16:45 | DVHPNRES ---
Progress Note Date Seen: Apr 04, 2025 Resident Creating Document: IGGY MARRERO RESIDENT Medical Necessity Reason Pt with a Central, PICC or Fol: No Subjective Review of Systems Ms. Jordan, a 45-year-old female with a complex medical history including diabetes mellitus, end-stage renal disease on hemodialysis (M/W/F), hypertension, prior pulmonary embolism, deep vein thrombosis, percutaneous transluminal coronary angioplasty, left below-knee amputation, right toe open wound, and right toe amputation, presented via EMS with a 3-day history of progressively worsening shortness of breath. Symptoms began following a 2-week course of nonproductive cough and chills. She missed her scheduled dialysis on 03/31/25 and has not taken her antihypertensive medications today. On EMS arrival, she was found to be hypoxic (SpO2 88% on room air), tachycardic, and hypertensive; oxygen therapy via nasal cannula at 2 L/min improved her saturation to 95%. She denies chest pain, palpitations, fever, productive cough, congestion, urinary symptoms, or other associated complaints. Differential diagnoses considered include CHF exacerbation, volume overload due to missed dialysis, pneumonia, PE, and other cardiopulmonary or metabolic causes. Past medical history: DM, ESRD (w/HD M/W/F), HTN, PE, DVT's, Obesity, right toe open wound. Past surgical history: BKA (left ), PTCA, right toe amputation, left upper extremity fistula.. Social history: Smokes half a pack a day, denies drinking or drug use. Lives with daughter. 04/03 - Patient seen and examined at bedside. Has lower extremity swelling, pending dialysis 04/04 - patient seen and examined, blood pressure is elevated, started hydralazine home medication. Hemodialysis tomorrow. Objective vital signs Vital Sign Date Time Temp Pulse Resp B/P (MAP) Pulse Ox O2 Delivery O2 Flow Rate FiO2 04/04/25 13:00 98.2 84 17 175/90 (118) 94 98.2 04/04/25 10:10 Room Air 04/04/25 10:10 0 21 Total Intake and Output 04/03/25 04/03/25 04/04/25 15:00 23:00 07:00 Intake Total 0 ml Balance 0 ml medications Current Medications Medications Dose Ordered Sig/Luma Route Start Time Stop Time Status Last Admin Dose Admin Ondansetron HCl 4 mg Q4HP PRN IV 04/03/25 00:45 Docusate Sodium 100 mg BIDPRN PRN PO 04/03/25 00:45 Acetaminophen 650 mg Q6HP PRN PO 04/03/25 00:45 Morphine Sulfate 2 mg Q4HPRN PRN IV 04/03/25 00:45 Cancel Nitroglycerin 0.4 mg Q5MINP PRN SL 04/03/25 00:45 Morphine Sulfate 2 mg Q30M PRN IV 04/03/25 00:45 Furosemide 40 mg BID IV 04/03/25 10:00 04/04/25 08:25 40 MG Atorvastatin Calcium 40 mg HS PO 04/03/25 22:00 04/03/25 22:55 40 MG Aspirin 81 mg DAILY PO 04/04/25 10:00 04/04/25 10:48 81 MG Gabapentin 300 mg TID PO 04/03/25 06:00 04/04/25 06:12 300 MG Diagnostic Test (Pha) 1 strip ACHS 04/03/25 07:00 04/04/25 12:20 1 STRIP Insulin Human Regular ACHS SC 04/03/25 07:00 04/04/25 12:15 4 UNITS Dextrose 50 ml UD PRN IV 04/03/25 01:00 Trazodone HCl 50 mg HS PRN PO 04/03/25 01:00 Levalbuterol HCl 0.625 mg Q6HWA PRN NEB 04/03/25 01:00 Ipratropium [place] 0.5 mg Q6HWA PRN NEB 04/03/25 01:00 Nicotine 1 patch DAILY TD 04/03/25 10:00 Apixaban 5 mg BID PO 04/03/25 10:00 04/04/25 10:47 5 MG Sevelamer HCl 2,400 mg TIDWM PO 04/03/25 18:00 04/04/25 12:10 2,400 MG Morphine Sulfate 2 mg Q4HPRN PRN IV 04/03/25 15:45 Ergocalciferol 50,000 unit Q7D PO 04/03/25 18:45 04/03/25 23:00 50,000 UNIT Examination Morbidly obese female patient lying in the bed comfortably, no acute distress General: Morbidly obese palor, mucosae are moist Cardiovascular: Regular S1 and S2. No murmurs, gallops or rubs. No JVD elevation. No pedal edema Respiratory: Decreased air entry on auscultation bilaterally, left lower crackles heard. Requiring NC supplementation Abdomen: Soft, nontender, nondistended, normoactive bowel sounds, no rebound tenderness, no organomegaly, no masses Genitourinary: Deferred MSK/skin: Left below-knee amputation Neurological: No motor, no sensitive deficits, normal speech. Pupils are isocoric and reactive. Psych/Mental Status: A/Ox3 laboratory and microbiology Laboratory Tests 04/04/25 09:16 Test 04/04/25 09:16 Range/Units Serum Glucose 154 H 74-106 mg/dL Microbiology Date/Time Source Procedure Growth Status 04/04/25 06:19 Nose MRSA Screen - Final Complete Labs and/or images reviewed: Labs reviewed by me, Image(s) reviewed by me Problem List/Assessment/Plan Problem List/Assessment/Plan ESRD on hemodialysis M/W/F Fluid overload secondary to above Pulmonary edema Uremia secondary to above Anemia of chronic kidney disease Pulmonary effusion secondary to above Hyperphosphatemia Secondary hyperparathyroidism Vitamin-D deficiency Kaitara Taraka consulted-hemodialysis 03/31 3-3.5 L taken off, hemodialysis tomorrow Renal diet, low-potassium diet Patient was hemodialysis last Thursday Supplemented vitamin-D Hepatitis panel pending COVID and then flu negative Sevelamer 2400 mg TID Acute hypoxic respiratory failure secondary to above Weaning off oxygen Anion gap metabolic acidosis secondary to uremia Monitor CMP Acute on chronic congestive heart failure Type 2 NSTEMI Hypertensive urgency Likely hypertensive heart disease Dyslipidemia EKG unremarkable for ST changes Telemetry admission Continue aspirin and atorvastatin Furosemide 40 IV b.i.d. Troponin BNP 3362 Echocardiogram pending Hydralazine 100 mg TID Diabetes mellitus-hemoglobin A1c 7.5 Peripheral neuropathy Gabapentin 300 mg TID Mild ISS Secondary coagulable state History of DVT Continue home dose Eliquis Hypernatremia Free water administered COPD-no exacerbation PRN nebulized treatments Chronic nicotine dependence Counseled regarding cessation for more than 20 minutes Nicotine patch. Right toe open wound Wound consult Heparin 5000 units for DVT prophylaxis Protonix 40 mg p.o. daily Plan discussed with patient in his all questions have been answered Goals of care discussed for more than 25 minutes, full code status Case discussed with Dr. Peterson. Hemodialysis pending for tomorrow. Plan discussed with: Patient My Orders My Orders Orders - IGGY MARRERO Procedure Category Date Status Time Ergocalciferol PHA 04/03/25 In Process (Vitamin D 50,000 18:45 * Wound Consult CONS 04/03/25 Transmitted Cleanse Wound With Ns ERIK 04/03/25 In Process 18:45 Mrsa Screen EVE 04/04/25 Uncollected 03:15 Date of Service: Apr 04, 2025 Billing Provider: JANAK SALEEM MD Common Visit Codes: [id number] INP/OBS CARE(HIGH) IGGY MARRERO Apr 04, 2025 16:45 JANAK SALEEM MD Apr 10, 2025 21:58
[2025-04-04] MEDS: hydrALAZINE HCL 25 MG TAB PO SCH (17:10)
[2025-04-05 01:00] VITALS: BP 171/91; PULSE 64; RESP 20; TEMP 98.3; O2SAT 96
[2025-04-05 05:00] VITALS: BP 173/96; PULSE 75; RESP 20; TEMP 98.3; O2SAT 96
[2025-04-05] MEDS ORDERED: SODIUM CHL 0.9% 1000 ML BAG XX ONE (07:00)
[2025-04-05 07:01] LABS: Chloride 102 mmol/L (98-107); Potassium 3.7 mmol/L (3.5-5.1); Sodium 141 mmol/L (136-145)
[2025-04-05 07:02] LABS: Anion Gap 14 (5-15); Carbon Dioxide 25 mmol/L (20-31)
[2025-04-05 07:07] LABS: BUN/Creatinine Ratio 6.1 (10.0-20.0)
[2025-04-05 07:08] LABS: Blood Urea Nitrogen 39 mg/dL (9-23); Glucose 171 mg/dL (74-106)
[2025-04-05] MEDS ORDERED: NIFEdipine ER 30 MG TAB PO ONE (07:45)
[2025-04-05 08:05] VITALS: PULSE 74
[2025-04-05 08:45] VITALS: BP 167/85; PULSE 73; RESP 20; TEMP 98; O2SAT 97
[2025-04-05 10:05] VITALS: O2SAT 96
[2025-04-05 10:21] LABS: Hepatitis B Surface Antibody Negative (Negative); Hepatitis B Surface Antigen Negative (Negative)
[2025-04-05 10:50] LABS: Hepatitis B Core Total AB Negative (Negative)
[2025-04-05 11:17] LABS: Hepatitis A Total Antibody Positive (Negative); Hepatitis B Surface Antibody Negative (Negative); Hepatitis B Surface Antigen Negative (Negative); Hepatitis C Antibody Negative (Negative)
--- NOTE | 2025-04-05 11:58 | DVHDSRES ---
Discharge Summary Date of Admission Resident Creating Document: IGGY MARRERO RESIDENT Apr 03, 2025 at 00:35 Date of Discharge: Apr 05, 2025 Labs/Diagnostic Data: Laboratory Results Test 04/05/25 11:36 04/05/25 05:50 04/04/25 09:16 04/03/25 18:42 POC Glucose 188 mg/dl (70-106) Sodium Level 141 mmol/L (136-145) Potassium Level 3.7 mmol/L (3.5-5.1) Chloride Level 102 mmol/L (98-107) Carbon Dioxide Level 25 mmol/L (20-31) Anion Gap 14 (5-15) Blood Urea Nitrogen 39 mg/dL (9-23) Creatinine 6.40 mg/dL (0.550-1.02) Glomerular Filtration Rate Calc 8 mL/min (>90) BUN/Creatinine Ratio 6.1 (10.0-20.0) Serum Glucose 171 mg/dL (74-106) Calcium Level 8.0 mg/dL (8.7-10.4) White Blood Count 7.2 10^3/uL (4.4-10.8) Red Blood Count 4.49 10^6/uL (4.0-5.20) Hemoglobin 12.5 g/dL (12.2-16.2) Hematocrit 37.8 % (36.0-46.0) Mean Corpuscular Volume 84.3 fL (80.0-100.0) Mean Corpuscular Hemoglobin 27.9 pg (28.0-32.0) Mean Corpuscular Hemoglobin Concent 33.1 g/dL (32.0-36.0) Red Cell Distribution Width 14.8 % (11.8-14.3) Platelet Count 258 10^3/uL (140-450) Mean Platelet Volume 10.3 fL (6.9-10.8) Neutrophils (%) (Auto) 69.5 % (37.0-80.0) Lymphocytes (%) (Auto) 21.8 % (10.0-50.0) Monocytes (%) (Auto) 5.0 % (0.0-12.0) Eosinophils (%) (Auto) 2.4 % (0.0-7.0) Basophils (%) (Auto) 1.3 % (0.0-2.0) Neutrophils # (Auto) 5.0 10 ^3/uL (1.6-8.6) Lymphocytes # (Auto) 1.6 10 ^3/uL (0.4-5.4) Monocytes # (Auto) 0.4 10 ^3/uL (0-1.3) Eosinophils # (Auto) 0.2 10 ^3/uL (0-0.8) Basophils # (Auto) 0.1 10 ^3/uL (0-0.2) Nucleated Red Blood Cells 0.0 % Magnesium Level 2.0 mg/dL (1.6-2.6) Total Bilirubin 0.6 mg/dL (0.2-1.0) Aspartate Amino Transferase (AST) 13 U/L (<34) Alanine Aminotransferase (ALT) 12 U/L (7-40) Alkaline Phosphatase 68 U/L (46-116) Troponin I High Sensitivity 42 ng/L (</=34) Total Protein 5.9 g/dL (5.7-8.2) Albumin 3.7 g/dL (3.2-4.8) Hepatitis A Antibody Total Positive (Negative) Hepatitis B Surface Antigen Negative (Negative) Hepatitis B Surface Antibody Negative (Negative) Hepatitis B Core Total Antibody Negative (Negative) Hepatitis C Antibody Negative (Negative) HIV (1&2) Antibody Negative (Negative) Test 04/03/25 08:00 04/03/25 07:10 04/03/25 01:26 04/02/25 22:47 Influenza Type A Antigen Negative (Negative) Influenza Type B Antigen Negative (Negative) SARS-CoV-2 Antigen (Rapid) Negative (NEGATIVE) Hemoglobin A1c 7.5 % A1C (<5.7) Phosphorus Level 9.7 mg/dL (2.4-5.1) Vitamin D 25-Hydroxy 10.5 ng/mL (30.0-100) Thyroid Stimulating Hormone (TSH) 2.32 uIU/mL (0.55-4.78) Parathyroid Hormone (Intact) 487.7 pg/mL (18.4-80.1) Plasma/Serum Blood Alcohol < 3.0 mg/dL (<10) Lactic Acid Level 1.1 mmol/L (0.4-2.0) Urine Color Light-yellow (Yellow) Urine Clarity Clear (Clear) Urine pH 6.5 (5.0-9.0) Urine Specific [place] 1.014 (1.001-1.035) Urine Protein 3+ (Negative) Urine Ketones Trace (Negative) Urine Blood 1+ /uL (Negative) Urine Nitrite Negative (Negative) Urine Bilirubin Negative (Negative) Urine Urobilinogen Normal mg/dL (Negative) Urine Leukocyte Esterase Negative /uL (Negative) Urine RBC 1 /hpf (0 - 4) Urine Microscopic WBC 1 /HPF (0-5) Urine Squamous Epithelial Cells Few /hpf (<5) Urine Bacteria Few /hpf (None Seen) Urine Glucose 4+ mg/dL (Normal) Urine Opiates Screen Neg (NEGATIVE) Urine Fentanyl Screen Neg (NEGATIVE) Urine Barbiturates Screen Neg (NEGATIVE) Urine Phencyclidine Screen Neg (NEGATIVE) Urine Amphetamines Screen Neg (NEGATIVE) Urine Benzodiazepines Screen Neg (NEGATIVE) Urine Cocaine Screen Neg (NEGATIVE) Urine Cannabinoids Screen Neg (NEGATIVE) Test 04/02/25 22:37 B-Type Natriuretic Peptide 3362.18 pg/mL (0-100) Other Laboratory Tests 04/05/25 05:50 04/04/25 09:16 Brief Hx & Hospital Course: Ms. Jordan, a 45-year-old female with a complex medical history including diabetes mellitus, end-stage renal disease on hemodialysis (M/W/F), hypertension, prior pulmonary embolism, deep vein thrombosis, percutaneous transluminal coronary angioplasty, left below-knee amputation, right toe open wound, and right toe amputation, presented via EMS with a 3-day history of progressively worsening shortness of breath. Symptoms began following a 2-week course of nonproductive cough and chills. She missed her scheduled dialysis on 03/31/25 and has not taken her antihypertensive medications today. On EMS arrival, she was found to be hypoxic (SpO2 88% on room air), tachycardic, and hypertensive; oxygen therapy via nasal cannula at 2 L/min improved her saturation to 95%. She denies chest pain, palpitations, fever, productive cough, congestion, urinary symptoms, or other associated complaints. Differential diagnoses considered include CHF exacerbation, volume overload due to missed dialysis, pneumonia, PE, and other cardiopulmonary or metabolic causes. Past medical history: DM, ESRD (w/HD M/W/F), HTN, PE, DVT's, Obesity, right toe open wound. Past surgical history: BKA (left ), PTCA, right toe amputation, left upper extremity fistula.. Social history: Smokes half a pack a day, denies drinking or drug use. Lives with daughter. During the hospitalization, patient was diagnosed with a fluid overload secondary to missed dialysis session. Patient with acute pulmonary edema and was started on Lasix 40 mg b.i.d., renal diet and low-potassium diet was started. Nephrology was consulted for hemodialysis which patient underwent on 03/31 and 3.5 L for taken off. Patient was started on cephalomedullary 2400 mg TID, vitamin-D were supplemented. COVID and flu were negative. She required oxygen supplementation and was later weaned off oxygen after hemodialysis session. Patient had type 2 NSTEMI secondary to hypertensive urgency which resolved after hemodialysis controlling blood pressure. We continued patient's home dose Eliquis, mild ISS for diabetes and free water for hypernatremia. Patient was hemodynamically stable, off oxygen, no acute distress therefore she was discharged 04/05 and was recommended strongly to [facility] for hemodialysis session, her chair time was arranged for today. Discharge plan: Follow up with [facility] today for hemodialysis Follow up with primary care physician within 7 days Follow up with ID clinic within 7 days Nifedipine 30 mg daily Resume home meds Patient to the discharge planning. All questions and concerns answered. Consults/Reason for consult Nephrology consulted for hemodialysis Operations or Procedures CHEST RADIOGRAPH Indication: Shortness of breath Technique: Single frontal view of the chest was obtained Comparison: None FINDINGS/IMPRESSION: Probable [id number] pleural effusion with associated opacity. There are diffuse hazy opacities throughout the lungs with prominence of the interstitial markings. There is enlargement of the cardiomediastinal silhouette. There is no pneumothorax. There is no acute osseous abnormality. ATED BY: MAYI WASHINGTON MD DICTATED DATE/TIME: 04/02/252253 SIGNED BY: MAYI WASHINGTON MD SIGNED DATE/TIME: 04/02/252253 CC: Condition at Discharge: Fair Final Diagnosis/Problems List ESRD on hemodialysis M/W/F Fluid overload secondary to above Acute hypoxic respiratory failure secondary to fluid overload Acute on chronic systolic CHF exacerbation secondary to above NSTEMI type II Pulmonary edema Hypertensive urgency Likely hypertensive heart disease Dyslipidemia Uremia secondary to above Anemia of chronic kidney disease Pulmonary effusion secondary to above Hyperphosphatemia Secondary hyperparathyroidism Vitamin-D deficiency Anion gap metabolic acidosis secondary to uremia Diabetes mellitus-hemoglobin A1c 7.5 Peripheral neuropathy History of DVT Secondary coagulable state Hypernatremia COPD-no exacerbation Chronic nicotine dependence Discharge Disposition: Home Discharge Instruct/Medications Diet: Renal Activity: Light activity Follow Up/Referral: Follow up with [facility] today for hemodialysis Follow up with primary care physician within 7 days Follow up with ID clinic within 7 days Medications: Nifedipine 30 mg daily Resume home meds Discharge Statement: "Patient was advised to return to the ER or call 911 if any headaches, dizziness, shortness of breath, chest pain, abdominal pain, bleeding, fevers, or worsening of medical condition. Patient was counseled about treatment plan, medications, possible side effects, patientverbalized understanding. All questions were answered to the best of my ability. This discharge took greater then 30 minutes in planning, reviewing documentation, counseling the patient, and discussing with other team members." ASSESSMENT ASSESSMENT Assessment ESRD on hemodialysis M/W/F Acute fluid overload secondary to above Acute Pulmonary edema Date of Service: Apr 05, 2025 Billing Provider: JANAK SALEEM MD Common Visit Codes: [id number] DISCH DAY >30min IGGY MARRERO RESIDENT Apr 05, 2025 11:58 JANAK SALEEM MD Apr 10, 2025 22:34
[2025-04-05] MEDS ORDERED: ATOR-507 PO (12:51)
[2025-04-05] MEDS ORDERED: CHOL500021 OR (12:51)
[2025-04-05 13:00] VITALS: BP 168/90; PULSE 77; RESP 18; TEMP 98.3; O2SAT 97
--- NOTE | 2025-04-05 13:52 | DVHPN2 ---
Progress Note Date Seen: Apr 05, 2025 Medical Necessity Reason Pt with a Central, PICC or Fol: No Subjective Patient reports: Feels better Other Systems: Patient seen and examined by myself today Objective vital signs Vital Sign Date Time Temp Pulse Resp B/P (MAP) Pulse Ox O2 Delivery O2 Flow Rate FiO2 04/05/25 08:45 98.0 73 20 167/85 (112) 97 98.0 04/04/25 20:00 Room Air* 0 21 Total Intake and Output 04/04/25 04/04/25 04/05/25 15:00 23:00 07:00 Intake Total 1200 ml 400 ml Balance 1200 ml 400 ml medications Current Medications Medications Dose Ordered Sig/Luma Route Start Time Stop Time Status Last Admin Dose Admin Ondansetron HCl 4 mg Q4HP PRN IV 04/03/25 00:45 Docusate Sodium 100 mg BIDPRN PRN PO 04/03/25 00:45 Acetaminophen 650 mg Q6HP PRN PO 04/03/25 00:45 Morphine Sulfate 2 mg Q4HPRN PRN IV 04/03/25 00:45 Cancel Nitroglycerin 0.4 mg Q5MINP PRN SL 04/03/25 00:45 Morphine Sulfate 2 mg Q30M PRN IV 04/03/25 00:45 Furosemide 40 mg BID IV 04/03/25 10:00 04/04/25 21:46 40 MG Atorvastatin Calcium 40 mg HS PO 04/03/25 22:00 04/03/25 22:55 40 MG Aspirin 81 mg DAILY PO 04/04/25 10:00 04/05/25 09:34 81 MG Gabapentin 300 mg TID PO 04/03/25 06:00 04/05/25 05:33 300 MG Diagnostic Test (Pha) 1 strip ACHS 04/03/25 07:00 04/05/25 05:37 1 STRIP Insulin Human Regular ACHS SC 04/03/25 07:00 04/05/25 12:00 3 UNITS Dextrose 50 ml UD PRN IV 04/03/25 01:00 Trazodone HCl 50 mg HS PRN PO 04/03/25 01:00 Levalbuterol HCl 0.625 mg Q6HWA PRN NEB 04/03/25 01:00 Cancel Ipratropium Tilly 0.5 mg Q6HWA PRN NEB 04/03/25 01:00 Cancel Nicotine 1 patch DAILY TD 04/03/25 10:00 Apixaban 5 mg BID PO 04/03/25 10:00 04/05/25 09:34 5 MG Sevelamer HCl 2,400 mg TIDWM PO 04/03/25 18:00 04/05/25 12:00 2,400 MG Morphine Sulfate 2 mg Q4HPRN PRN IV 04/03/25 15:45 Ergocalciferol 50,000 unit Q7D PO 04/03/25 18:45 04/03/25 23:00 50,000 UNIT Hydralazine HCl 100 mg Q8HR PO 04/04/25 16:45 04/05/25 05:33 100 MG Examination: LUNGS:Normal (n follow-up), CVS:Normal, MSK:Abnormal laboratory and microbiology Laboratory Tests 04/05/25 05:50 04/04/25 09:16 Test 04/05/25 05:50 Range/Units Serum Glucose 171 H 74-106 mg/dL Microbiology Date/Time Source Procedure Growth Status 04/04/25 06:19 Nose MRSA Screen - Final Complete Problem List/Assessment/Plan Problem List/Assessment/Plan End-stage renal disease missed hemodialysis Acute hypoxic respiratory failure Congestive heart failure exacerbation Hypertension Coronary artery disease DVT Diabetes mellitus type 2 Peripheral arterial disease Left Below-knee amputation Right midtarsal foot amputation Hyperphosphatemia Vitamin-D deficiency Severe secondary hyperparathyroidism Mild anemia of chronic Kidney disease Recommendations Patient is cleared for discharge from Nephrology Patient has chair kidney scheduled for today at [facility] dialysis I will sign off thank you for the consult Plan discussed with: Patient ISABELA CAMILO MD Apr 05, 2025 13:51
--- NOTE | 2025-04-05 18:08 | DVHSR ---
APPROVED REPORT EXAM: Two-dimensional and M-mode echocardiogram with Doppler and color Doppler. Blood Pressure: 179/102 mmHg INDICATION Rule out structural heart disease, LVEF RISK FACTORS Height: 64, Weight: 199 DIMENSIONS LVDd5.2 (3.8-5.7cm)LA (2D)4.9 (1.9-4.0cm)Aortic Root3.5 (2.0-3.7cm) LVDs4.3 (2.5-4.0cm)LA (MM) (1.9-4.0cm)Aortic Cusp Exc1.7 (1.5-2.0cm) EF (%) 35.0 (55-70%)Rt. Atrium4.1 (1.9-4.0cm)Asc. Aorta cm IVSd1.5 (0.7-1.1cm)RV (D) (1.8-2.4cm) PWd1.7 (0.7-1.1cm) Mitral Valve MitralMitral Stenosis E wave1.18m/sMV Mean GR.mmHg A wave0.79m/sMV Peak GR.112mmHg E/A ratio1.52D MVAcm2 DECEL [id number] 1/2 [place] Aortic Valve Aortic ValveAortic Stenosis V10.86m/Kerri Mean GR.5mmHg V21.45m/Kerri Peak GR.8mmHg LVOT Diameter2.2 (1.8-2.4cm)Doppler AVA2.25cm2 AI P 1/2 Yltr347.74ms Pulmonic Valve V21.00m/s Tricuspid Valve TR Velocity3.12m/s [id number] Conclusion Technically good study. Sinus rhythm. Concentric LVH with biatrial enlargement. Valves appear to be structurally normal. Diminished excursion of the leaflets secondary to poor card iac output. Left ventricular function is diminished. EF is approximately 25% with global hypokinesis. Diminishe d RV function. Mild mitral insufficiency with moderate tricuspid regurgitation. Small pericardial effusion not hemodynamically significant. No intracardiac masses thrombi or vegetations discernible.
== END 2025-04-05 14:23 | disposition home or self-care (01) | DRG 280 ==
LOC: EDBD 21:28 → ER 21:28 → MERGE 04-03 00:35 → OVERFLOW 04-03 00:35 → TELE-WESTW 04-04 02:40
PROVIDERS: ADMIT Student in an Organized Health Care Education/Training Program; ATTEND Student in an Organized Health Care Education/Training Program
PROC: 5A1D70Z Performance of Urinary Filtration, Intermittent, Less than 6 Hours Per Day (ICD-10-PCS; principal; 2025-04-03)
DX: I13.2 Hypertensive heart and chronic kidney disease with heart failure and with stage 5 chronic kidney disease, or end stage renal disease (principal); I50.23 Acute on chronic systolic (congestive) heart failure; I21.A1 Myocardial infarction type 2; J96.01 Acute respiratory failure with hypoxia; N18.6 End stage renal disease; E87.21 Acute metabolic acidosis; N25.81 Secondary hyperparathyroidism of renal origin; E87.0 Hyperosmolality and hypernatremia; Z20.822 Contact with and (suspected) exposure to COVID-19; D63.1 Anemia in chronic kidney disease; E11.22 Type 2 diabetes mellitus with diabetic chronic kidney disease; E11.51 Type 2 diabetes mellitus with diabetic peripheral angiopathy without gangrene; E83.39 Other disorders of phosphorus metabolism; E66.811 Obesity, class 1; E11.42 Type 2 diabetes mellitus with diabetic polyneuropathy; G89.29 Other chronic pain; G47.00 Insomnia, unspecified; S91.109A Unspecified open wound of unspecified toe(s) without damage to nail, initial encounter; J44.9 Chronic obstructive pulmonary disease, unspecified; I16.0 Hypertensive urgency; F17.210 Nicotine dependence, cigarettes, uncomplicated; E78.5 Hyperlipidemia, unspecified; X58.XXXA Exposure to other specified factors, initial encounter; I25.10 Atherosclerotic heart disease of native coronary artery without angina pectoris; Z88.0 Allergy status to penicillin; Z89.512 Acquired absence of left leg below knee; Z99.2 Dependence on renal dialysis; Z68.34 Body mass index [BMI] 34.0-34.9, adult; Z86.718 Personal history of other venous thrombosis and embolism; Y93.89 Activity, other specified; Y92.89 Other specified places as the place of occurrence of the external cause; Y99.8 Other external cause status; Z71.6 Tobacco abuse counseling; Z86.711 Personal history of pulmonary embolism
CPT/HCPCS: 36415; 71045; 80048; 80053; 80307; 80320; 81001; 82306; 82962; 83036; 83605; 83735; 83880; 83970; 84100; 84295; 84443; 84484; 85025; 86703; 86704; 86706; 86708; 86803; 87077; 87081; 87186; 87205; 87340; 87426; 87804; 90935; 93005; 93306; 96372; G0378; J1642; J1815